=== PATIENT | female | born 1930 | race Asian ===

== ENCOUNTER 2018-06-12 18:43 | Inpatient (IN) | payer OTHER, MEDICARE ==
[~2018-06-12] VITALS: Ht 152.4 cm; Wt 63.7 kg
[~2018-06-12 18:43] MED LIST: AMLODIPINE BESYL5 M1 PO; BG MC; CARVEDILOL12.5 MG PO; COREG12.5 MG PO; COZ25 PO; ECO81 PO; GLU500 PO; ISO10 PO; LIPI10 PO; TORADOL10 MG PO
[2018-06-12 18:50] VITALS: Ht 152.4 cm; Wt 63.7 kg
[2018-06-12 19:47] LABS: BASOPHIL % 0.3 % (0-2); PLATELET COUNT 250 x10^3mcL (130-400)
[2018-06-12 19:49] LABS: RED CELL DISTRIBUTION WIDTH 15.3 % (11.5-14.5)
[2018-06-12 20:04] LABS: ALBUMIN 3.5 g/dL (3.4-5.0); ALKALINE PHOSPHATASE 78 U/L (46-116); ALT/SGPT 23 U/L (14-59); BILIRUBIN TOTAL 0.36 mg/dL (0.20-1.00); CALCIUM 9.7 mg/dL (8.5-10.1); CREATININE SERUM 1.2 mg/dL (0.6-1.0); GLUCOSE SERUM 129 mg/dL (74-106)
[2018-06-12 20:09] LABS: CHLORIDE SERUM 103 mmol/L (98-107)
[2018-06-12 20:23] LABS: AST/SGOT 22 U/L (15-37); CARBON DIOXIDE 29.2 mmol/L (21-32); POTASSIUM SERUM 4.9 mmol/L (3.5-5.1); SODIUM SERUM 137 mmol/L (136-145); TOTAL PROTEIN, SERUM 6.6 g/dL (6.4-8.2)
[2018-06-12 21:16] LABS: CHOLESTEROL/HDL RATIO 4.2; MAGNESIUM 1.9 mg/dL (1.8-2.4); PHOSPHOROUS 3.3 mg/dL (2.5-4.9)
[2018-06-12 21:21] LABS: T3 TOTAL 0.87 ng/mL
[2018-06-12] MEDS ORDERED: SINEMET 25-1001 TAB PO (21:22)
[2018-06-12 21:23] LABS: FREE T4 0.98 ng/dL (0.76-1.46); FREE THYROXINE INDEX 2.1 ug/dL (1.4-4.5); T4(THYROXINE) 6.3 ug/dL (4.7-13.3)
[2018-06-12] MEDS ORDERED: CLOZAPINE PO (21:23)
[2018-06-12] MEDS ORDERED: ALDACTONE25 MG PO (21:25)
[2018-06-12] MEDS ORDERED: ESCITALOPRA5 MG/5 ML PO (21:26)
[2018-06-12] MEDS ORDERED: TRADJENTA5 M1 PO (21:26)
[2018-06-12] MEDS ORDERED: VAL250 PO (21:28)
[2018-06-12 22:21] VITALS: BP 199/90
[2018-06-12 23:00] VITALS: BP 199/90
[2018-06-13] VITALS (8 sets, daily range): BP systolic 116–202; BP diastolic 55–97
[2018-06-13 01:04] LABS: RED BLOOD CELLS 4.77 M/mm3 (4.10-5.10)
[2018-06-13 01:12] LABS: TOTAL IRON BINDING CAPACITY 265 ug/dL (250-450)
[2018-06-13 01:19] LABS: IRON 30 ug/dL (50-170)
[2018-06-13 02:27] LABS: microscopic required? NO
[2018-06-13 02:35] LABS: UA SPECIFIC GRAVITY 1.015 (1.005-1.035); urine erythrocyte NEGATIVE (NEGATIVE)
[2018-06-13 02:48] LABS: AMPHETAMINE QUAL UR NONE DETECTED (See below)
[2018-06-13 06:31] LABS: BASOPHIL % 0.2 % (0-2); PLATELET COUNT 222 x10^3mcL (130-400)
[2018-06-13 06:38] LABS: RED CELL DISTRIBUTION WIDTH 15.4 % (11.5-14.5)
[2018-06-13 06:41] LABS: CALCIUM 9.4 mg/dL (8.5-10.1); CARBON DIOXIDE 28.9 mmol/L (21-32); CHLORIDE SERUM 106 mmol/L (98-107); CREATININE SERUM 1.1 mg/dL (0.6-1.0); GLUCOSE SERUM 114 mg/dL (74-106); SODIUM SERUM 139 mmol/L (136-145)
[2018-06-14 05:49] VITALS: BP 168/62
[2018-06-14 06:54] LABS: BASOPHIL % 0.1 % (0-2); PLATELET COUNT 228 x10^3mcL (130-400)
[2018-06-14 07:03] LABS: RED CELL DISTRIBUTION WIDTH 15.3 % (11.5-14.5); rbc morphology (normal/abnorm) ABNORMAL (NORMAL)
[2018-06-14 07:26] LABS: CALCIUM 9.4 mg/dL (8.5-10.1); CARBON DIOXIDE 26.9 mmol/L (21-32); CHLORIDE SERUM 104 mmol/L (98-107); CREATININE SERUM 1.2 mg/dL (0.6-1.0); GLUCOSE SERUM 89 mg/dL (74-106); PHOSPHOROUS 3.1 mg/dL (2.5-4.9); POTASSIUM SERUM 5.4 mmol/L (3.5-5.1); SODIUM SERUM 137 mmol/L (136-145)
[2018-06-14 09:28] VITALS: BP 188/73
[2018-06-14 13:48] VITALS: BP 186/81
[2018-06-14] MEDS ORDERED: DONEPEZIL PO (14:15)
[2018-06-14] MEDS ORDERED: KLO0.5 PO (14:17)
[2018-06-14 16:38] VITALS: BP 146/55
[2018-06-14 21:40] VITALS: BP 175/60
[2018-06-15 06:51] VITALS: BP 178/66
[2018-06-15 10:30] VITALS: BP 137/64
[2018-06-15 13:46] VITALS: BP 144/61
[2018-06-15 14:29] VITALS: BP 144/61
[2018-06-15] MEDS ORDERED: FER300 PO (14:32)
[2018-06-15] MEDS ORDERED: ADA30 PO (14:33)
[2018-06-15] MEDS ORDERED: COZ50 PO (14:33)
[2018-06-15] MEDS ORDERED: TOP50 PO (14:33)
[2018-06-15] MEDS ORDERED: VITAMIN C500 M6 PO (15:18)
[2018-06-15 15:48] LABS: CALCIUM 9.7 mg/dL (8.5-10.1); CARBON DIOXIDE 26.4 mmol/L (21-32); CHLORIDE SERUM 103 mmol/L (98-107); GLUCOSE SERUM 129 mg/dL (74-106); POTASSIUM SERUM 4.3 mmol/L (3.5-5.1); SODIUM SERUM 136 mmol/L (136-145)
[2018-06-15 15:56] LABS: BASOPHIL % 0.2 % (0-2); PLATELET COUNT 206 x10^3mcL (130-400)
[2018-06-15 15:58] LABS: RED CELL DISTRIBUTION WIDTH 14.7 % (11.5-14.5)
== END 2018-06-15 17:01 | disposition home health service (06) | DRG 199 ==
LOC: ED 18:43 → DU 20:14
PROVIDERS: Emergency Medicine; Family Medicine
DX: I16.0 Hypertensive urgency (principal); N17.0 Acute kidney failure with tubular necrosis; G20 Parkinson's disease; I70.1 Atherosclerosis of renal artery; E11.9 Type 2 diabetes mellitus without complications; D50.9 Iron deficiency anemia, unspecified; M94.0 Chondrocostal junction syndrome [Tietze]; E78.00 Pure hypercholesterolemia, unspecified; R09.02 Hypoxemia; E78.5 Hyperlipidemia, unspecified; I10 Essential (primary) hypertension; Z91.81 History of falling; Z99.3 Dependence on wheelchair; Z68.24 Body mass index [BMI] 24.0-24.9, adult; Z90.710 Acquired absence of both cervix and uterus; Z79.84 Long term (current) use of oral hypoglycemic drugs; Z79.82 Long term (current) use of aspirin; Z79.899 Other long term (current) drug therapy; Z83.3 Family history of diabetes mellitus
CPT/HCPCS: 36600; 83880; 84439; 85378; 97110-GP; 97116-GP; 97530-GP; J3490; J7030; J7620; Q0092; Q0162; Q9967

== ENCOUNTER 2018-08-24 18:23 | Inpatient (IN) | payer OTHER, MEDICARE ==
[~2018-08-24] VITALS: Ht 154.9 cm; Wt 55.8 kg
[~2018-08-24 18:23] MED LIST changes: +ADA30 PO; +ALDACTONE25 MG PO; +CLOZAPINE PO; +COZ50 PO; +DONEPEZIL PO; +ESCITALOPRA5 MG/5 ML PO; +FER300 PO; +KLO0.5 PO; +SINEMET 25-1001 TAB PO; +TOP50 PO; +TRADJENTA5 M1 PO; +VAL250 PO; +VITAMIN C500 M6 PO
[2018-08-24 19:12] VITALS: Ht 154.9 cm; Wt 55.8 kg
[2018-08-24 20:38] LABS: PLATELET COUNT 348 x10^3mcL (130-400)
[2018-08-24 20:40] LABS: RED CELL DISTRIBUTION WIDTH 16.2 % (11.5-14.5)
[2018-08-24 21:02] LABS: BAND NEUTROPHIL 3 % (0-10); BASOPHIL 0 % (0-2); MONOCYTE 5 % (0-7); SEGMENTED NEUTROPHILS 64 % (37-75)
[2018-08-24 21:03] LABS: ovalocyte/elliptocyte 1+; rbc morphology (normal/abnorm) ABNORMAL (NORMAL)
[2018-08-24 21:04] LABS: PLATELET MORPHOLOGY PLATELETS NORMAL; target cell (codocyte) 1+
[2018-08-24 21:25] LABS: CALCIUM 11.4 mg/dL (8.5-10.1); CHLORIDE SERUM 105 mmol/L (98-107); CREATININE SERUM 1.1 mg/dL (0.6-1.0); GLUCOSE SERUM 159 mg/dL (74-106); POTASSIUM SERUM 3.9 mmol/L (3.5-5.1); SODIUM SERUM 143 mmol/L (136-145)
[2018-08-24 21:29] LABS: ALBUMIN 3.6 g/dL (3.4-5.0); ALKALINE PHOSPHATASE 112 U/L (46-116); ALT/SGPT 25 U/L (14-59); AST/SGOT 17 U/L (15-37); BILIRUBIN TOTAL 0.9 mg/dL (0.20-1.00); TOTAL PROTEIN, SERUM 8.4 g/dL (6.4-8.2)
[2018-08-24 21:44] LABS: UA SPECIFIC GRAVITY 1.025 (1.005-1.035); microscopic required? YES; urine erythrocyte TRACE (NEGATIVE)
[2018-08-24 22:41] LABS: T3 TOTAL 1.18 ng/mL
[2018-08-24 22:43] VITALS: BP 185/74
[2018-08-24 22:45] LABS: FREE T4 1.61 ng/dL (0.76-1.46); FREE THYROXINE INDEX 4.5 ug/dL (1.4-4.5); T4(THYROXINE) 12.2 ug/dL (4.7-13.3)
[2018-08-24 23:11] LABS: MAGNESIUM 2.3 mg/dL (1.8-2.4); PHOSPHOROUS 2.9 mg/dL (2.5-4.9)
[2018-08-24 23:14] LABS: CHOLESTEROL/HDL RATIO 4.2
[2018-08-25] VITALS (8 sets, daily range): BP systolic 153–201; BP diastolic 76–100
[2018-08-25 06:09] LABS: PLATELET COUNT 299 x10^3mcL (130-400)
[2018-08-25 06:33] LABS: CALCIUM 9.4 mg/dL (8.5-10.1); CARBON DIOXIDE 22.5 mmol/L (21-32); CHLORIDE SERUM 110 mmol/L (98-107); CREATININE SERUM 0.8 mg/dL (0.6-1.0); GLUCOSE SERUM 152 mg/dL (74-106); MAGNESIUM 1.8 mg/dL (1.8-2.4); PHOSPHOROUS 2.5 mg/dL (2.5-4.9); POTASSIUM SERUM 3.3 mmol/L (3.5-5.1); SODIUM SERUM 142 mmol/L (136-145)
[2018-08-25 07:00] LABS: RED CELL DISTRIBUTION WIDTH 15.9 % (11.5-14.5)
[2018-08-25 09:25] LABS: ATYPICAL LYMPH 3 %; BAND NEUTROPHIL 1 % (0-10); BASOPHIL 1 % (0-2); MONOCYTE 10 % (0-7); SEGMENTED NEUTROPHILS 66 % (37-75)
[2018-08-25 09:27] LABS: rbc morphology (normal/abnorm) ABNORMAL (NORMAL); target cell (codocyte) 2+
[2018-08-25 09:28] LABS: PLATELET MORPHOLOGY PLATELETS NORMAL; schistocyte (helmet cell) 1+
[2018-08-25 09:33] LABS: IRON 44 ug/dL (50-170)
[2018-08-25 09:35] LABS: TOTAL IRON BINDING CAPACITY 166 ug/dL (250-450)
[2018-08-26] VITALS (7 sets, daily range): BP systolic 135–198; BP diastolic 73–97
[2018-08-26 06:03] LABS: PLATELET COUNT 279 x10^3mcL (130-400)
[2018-08-26 06:33] LABS: CALCIUM 9.7 mg/dL (8.5-10.1); CARBON DIOXIDE 23.7 mmol/L (21-32); CHLORIDE SERUM 111 mmol/L (98-107); CREATININE SERUM 0.8 mg/dL (0.6-1.0); GLUCOSE SERUM 174 mg/dL (74-106); MAGNESIUM 2.1 mg/dL (1.8-2.4); PHOSPHOROUS 1.8 mg/dL (2.5-4.9); SODIUM SERUM 143 mmol/L (136-145)
[2018-08-26 07:41] LABS: RED CELL DISTRIBUTION WIDTH 15.9 % (11.5-14.5)
[2018-08-26 14:06] LABS: BAND NEUTROPHIL 2 % (0-10); MONOCYTE 8 % (0-7); SEGMENTED NEUTROPHILS 71 % (37-75)
[2018-08-26 14:07] LABS: ATYPICAL LYMPH 2 %
[2018-08-26 14:09] LABS: rbc morphology (normal/abnorm) ABNORMAL (NORMAL)
[2018-08-26 14:10] LABS: ovalocyte/elliptocyte 2+; schistocyte (helmet cell) 1+
[2018-08-26 14:11] LABS: PLATELET MORPHOLOGY PLATELETS NORMAL
[2018-08-27] VITALS (7 sets, daily range): BP systolic 115–158; BP diastolic 52–97
[2018-08-27 06:02] LABS: CALCIUM 10.3 mg/dL (8.5-10.1); CARBON DIOXIDE 26.2 mmol/L (21-32); CHLORIDE SERUM 111 mmol/L (98-107); GLUCOSE SERUM 282 mg/dL (74-106); MAGNESIUM 2.3 mg/dL (1.8-2.4); PHOSPHOROUS 2.9 mg/dL (2.5-4.9); POTASSIUM SERUM 4.1 mmol/L (3.5-5.1); SODIUM SERUM 145 mmol/L (136-145)
[2018-08-27 06:03] LABS: PLATELET COUNT 256 x10^3mcL (130-400)
[2018-08-27 13:55] LABS: ATYPICAL LYMPH 3 %; BAND NEUTROPHIL 3 % (0-10); MONOCYTE 7 % (0-7); SEGMENTED NEUTROPHILS 72 % (37-75)
[2018-08-27 13:56] LABS: rbc morphology (normal/abnorm) ABNORMAL (NORMAL)
[2018-08-27 13:57] LABS: PLATELET MORPHOLOGY PLATELETS NORMAL; ovalocyte/elliptocyte 2+; schistocyte (helmet cell) 1+; target cell (codocyte) 2+
[2018-08-28 05:55] VITALS: BP 185/62
[2018-08-28 06:55] LABS: PLATELET COUNT 231 x10^3mcL (130-400)
[2018-08-28 07:13] LABS: CALCIUM 10.4 mg/dL (8.5-10.1); CARBON DIOXIDE 26.5 mmol/L (21-32); CHLORIDE SERUM 112 mmol/L (98-107); CREATININE SERUM 0.9 mg/dL (0.6-1.0); GLUCOSE SERUM 182 mg/dL (74-106); MAGNESIUM 2.4 mg/dL (1.8-2.4); PHOSPHOROUS 2.9 mg/dL (2.5-4.9); POTASSIUM SERUM 4.6 mmol/L (3.5-5.1); SODIUM SERUM 145 mmol/L (136-145)
[2018-08-28 08:59] LABS: RED CELL DISTRIBUTION WIDTH 17.2 % (11.5-14.5)
[2018-08-28 09:12] VITALS: BP 166/64
[2018-08-28 11:02] LABS: ATYPICAL LYMPH 7 %; BAND NEUTROPHIL 0 % (0-10); BASOPHIL 0 % (0-2); MONOCYTE 1 % (0-7); SEGMENTED NEUTROPHILS 77 % (37-75)
[2018-08-28 11:03] LABS: PLATELET MORPHOLOGY PLATELETS DECREASED; rbc morphology (normal/abnorm) ABNORMAL (NORMAL)
[2018-08-28] MEDS ORDERED: CEPHALEXIN500 MG GT (11:48)
[2018-08-28] MEDS ORDERED: GLUCERNA 1.2 C237 ML GT (11:52)
[2018-08-28 12:51] VITALS: BP 159/58
[2018-08-28 17:25] VITALS: BP 159/58
== END 2018-08-28 19:16 | disposition home health service (06) | DRG 52 ==
LOC: ED 18:23 → DU 21:43 → MU 21:43 → DU 08-25 08:18
PROVIDERS: Emergency Medicine; Internal Medicine; Internal Medicine Gastroenterology
PROC: 0DH63UZ Insertion of Feeding Device into Stomach, Percutaneous Approach (ICD-10-PCS; principal; 2018-08-25 13:30)
DX: G92 Toxic encephalopathy (principal); N17.0 Acute kidney failure with tubular necrosis; R62.7 Adult failure to thrive; F50.89 Other specified eating disorder; G20 Parkinson's disease; E86.0 Dehydration; E78.00 Pure hypercholesterolemia, unspecified; F32.9 Major depressive disorder, single episode, unspecified; I10 Essential (primary) hypertension; F03.90 Unspecified dementia, unspecified severity, without behavioral disturbance, psychotic disturbance, mood disturbance, and anxiety; E78.5 Hyperlipidemia, unspecified; G40.909 Epilepsy, unspecified, not intractable, without status epilepticus; E11.65 Type 2 diabetes mellitus with hyperglycemia; I16.0 Hypertensive urgency; N39.0 Urinary tract infection, site not specified; Z90.710 Acquired absence of both cervix and uterus; K29.80 Duodenitis without bleeding; Z79.82 Long term (current) use of aspirin; Z79.899 Other long term (current) drug therapy; Z83.3 Family history of diabetes mellitus
CPT/HCPCS: 43235; 82962; 83880; 84439; 90658; J0360; J0696; J1200; J1610; J2250; J2310; J3010; J3480; J3490; J7030; J7120; J7620; J8597; Q0092; Q9967

== ENCOUNTER 2018-11-11 17:19 | Inpatient (IN) | payer OTHER, MEDICARE ==
[~2018-11-11] VITALS: Ht 154.9 cm; Wt 56.0 kg
[~2018-11-11 17:19] MED LIST changes: +CEPHALEXIN500 MG GT; +GLUCERNA 1.2 C237 ML GT
[2018-11-11 17:23] VITALS: Ht 154.9 cm; Wt 56.0 kg
[2018-11-11 18:39] LABS: BASOPHIL % 0.3 % (0-2); PLATELET COUNT 294 x10^3mcL (130-400); RED CELL DISTRIBUTION WIDTH 17.8 % (11.5-14.5)
[2018-11-11 18:50] LABS: CALCIUM 10.7 mg/dL (8.5-10.1); CARBON DIOXIDE 26.9 mmol/L (21-32); CHLORIDE SERUM 102 mmol/L (98-107); CREATININE SERUM 1.2 mg/dL (0.6-1.0); GLUCOSE SERUM 238 mg/dL (74-106); POTASSIUM SERUM 4.6 mmol/L (3.5-5.1); SODIUM SERUM 140 mmol/L (136-145)
[2018-11-11 18:54] LABS: ALBUMIN 4.1 g/dL (3.4-5.0); ALKALINE PHOSPHATASE 110 U/L (46-116); ALT/SGPT 24 U/L (14-59); AST/SGOT 23 U/L (15-37); BILIRUBIN TOTAL 1.14 mg/dL (0.20-1.00)
[2018-11-11 18:55] LABS: TOTAL PROTEIN, SERUM 8.9 g/dL (6.4-8.2)
[2018-11-11 19:09] LABS: microscopic required? YES; urine erythrocyte NEGATIVE (NEGATIVE)
[2018-11-11] MEDS ORDERED: TOPROL XL25 MG (20:32)
[2018-11-11] MEDS ORDERED: LOSARTAN POTASS25 M1 (20:32)
[2018-11-11 21:47] LABS: MAGNESIUM 2.3 mg/dL (1.8-2.4); PHOSPHOROUS 3.1 mg/dL (2.5-4.9)
[2018-11-11 22:21] VITALS: BP 138/66
[2018-11-11 22:36] VITALS: BP 138/66; BP 192/94
[2018-11-12 04:14] LABS: CALCIUM 9.7 mg/dL (8.5-10.1); CARBON DIOXIDE 22.6 mmol/L (21-32); CHLORIDE SERUM 108 mmol/L (98-107); CREATININE SERUM 1.1 mg/dL (0.6-1.0); GLUCOSE SERUM 224 mg/dL (74-106); MAGNESIUM 1.9 mg/dL (1.8-2.4); PHOSPHOROUS 2.1 mg/dL (2.5-4.9); POTASSIUM SERUM 3.8 mmol/L (3.5-5.1); SODIUM SERUM 143 mmol/L (136-145)
[2018-11-12 04:17] LABS: RED CELL DISTRIBUTION WIDTH 16.8 % (11.5-14.5)
[2018-11-12 04:22] LABS: PLATELET COUNT 238 x10^3mcL (130-400)
[2018-11-12 04:23] LABS: BASOPHIL % 0.1 % (0-2)
[2018-11-12 06:22] VITALS: BP 164/67
[2018-11-12 06:28] VITALS: BP 164/64
[2018-11-12 10:34] VITALS: BP 173/76
[2018-11-12 14:33] VITALS: BP 149/65
[2018-11-12 17:21] VITALS: BP 140/63
[2018-11-12 21:03] VITALS: BP 111/63
[2018-11-13 05:41] VITALS: BP 190/97
[2018-11-13 06:57] VITALS: BP 136/74
[2018-11-13 07:10] LABS: PLATELET COUNT 210 x10^3mcL (130-400)
[2018-11-13 07:12] LABS: BASOPHIL % 0 % (0-2); RED CELL DISTRIBUTION WIDTH 16.8 % (11.5-14.5)
[2018-11-13 07:16] LABS: CALCIUM 9.4 mg/dL (8.5-10.1); CARBON DIOXIDE 22.6 mmol/L (21-32); CHLORIDE SERUM 109 mmol/L (98-107); CREATININE SERUM 0.8 mg/dL (0.6-1.0); GLUCOSE SERUM 176 mg/dL (74-106); SODIUM SERUM 144 mmol/L (136-145)
[2018-11-13 07:20] LABS: POTASSIUM SERUM 2.7 mmol/L (3.5-5.1)
[2018-11-13 09:11] VITALS: BP 149/67
[2018-11-13 13:04] VITALS: BP 157/78
[2018-11-13 17:05] VITALS: BP 172/82
[2018-11-13 20:00] VITALS: BP 165/80
[2018-11-14 05:12] VITALS: BP 167/82
[2018-11-14 09:08] VITALS: BP 170/70
[2018-11-14 12:40] VITALS: BP 123/60
[2018-11-14 16:43] VITALS: BP 119/65
[2018-11-14 20:48] VITALS: BP 147/79
[2018-11-15 06:11] VITALS: BP 157/74
[2018-11-15 06:48] LABS: BASOPHIL % 0.1 % (0-2); PLATELET COUNT 202 x10^3mcL (130-400)
[2018-11-15 07:10] LABS: CALCIUM 8.9 mg/dL (8.5-10.1); CARBON DIOXIDE 25.4 mmol/L (21-32); CHLORIDE SERUM 110 mmol/L (98-107); CREATININE SERUM 0.7 mg/dL (0.6-1.0); GLUCOSE SERUM 160 mg/dL (74-106); MAGNESIUM 1.5 mg/dL (1.8-2.4); SODIUM SERUM 143 mmol/L (136-145)
[2018-11-15 07:14] LABS: RED CELL DISTRIBUTION WIDTH 16.6 % (11.5-14.5)
[2018-11-15 07:24] LABS: POTASSIUM SERUM 2.6 mmol/L (3.5-5.1)
[2018-11-15 07:36] VITALS: BP 166/63
[2018-11-15 10:53] VITALS: BP 166/63
[2018-11-15 12:14] VITALS: BP 164/63
[2018-11-15 16:16] VITALS: BP 130/61
[2018-11-15 22:28] VITALS: BP 182/81
[2018-11-16 05:14] VITALS: BP 180/78
[2018-11-16 09:05] VITALS: BP 182/76
[2018-11-16 10:00] LABS: BASOPHIL % 0.1 % (0-2); PLATELET COUNT 212 x10^3mcL (130-400); RED CELL DISTRIBUTION WIDTH 16.7 % (11.5-14.5)
[2018-11-16 10:25] LABS: CALCIUM 8.6 mg/dL (8.5-10.1); CARBON DIOXIDE 28.6 mmol/L (21-32); CHLORIDE SERUM 109 mmol/L (98-107); CREATININE SERUM 0.7 mg/dL (0.6-1.0); GLUCOSE SERUM 162 mg/dL (74-106); SODIUM SERUM 144 mmol/L (136-145)
[2018-11-16 10:26] LABS: POTASSIUM SERUM 2.9 mmol/L (3.5-5.1)
[2018-11-16 13:17] VITALS: BP 192/70
[2018-11-16 14:04] VITALS: BP 143/63
[2018-11-16 17:14] VITALS: BP 144/49
[2018-11-16 20:46] VITALS: BP 166/84
[2018-11-17 05:34] VITALS: BP 206/90
[2018-11-17 06:10] VITALS: BP 178/78
[2018-11-17 07:01] LABS: CALCIUM 8.5 mg/dL (8.5-10.1); CARBON DIOXIDE 28.4 mmol/L (21-32); CHLORIDE SERUM 107 mmol/L (98-107); CREATININE SERUM 0.7 mg/dL (0.6-1.0); GLUCOSE SERUM 160 mg/dL (74-106); POTASSIUM SERUM 3.6 mmol/L (3.5-5.1); SODIUM SERUM 142 mmol/L (136-145)
[2018-11-17 08:16] LABS: BASOPHIL % 0.1 % (0-2); PLATELET COUNT 216 x10^3mcL (130-400)
[2018-11-17 08:19] LABS: RED CELL DISTRIBUTION WIDTH 16.7 % (11.5-14.5)
[2018-11-17 08:20] LABS: rbc morphology (normal/abnorm) ABNORMAL (NORMAL)
[2018-11-17 10:02] VITALS: BP 181/84
[2018-11-17 16:31] VITALS: BP 113/46
[2018-11-17 21:14] VITALS: BP 141/69
[2018-11-18 05:26] VITALS: BP 146/59
[2018-11-18 07:43] VITALS: BP 189/83
[2018-11-18 09:30] LABS: CALCIUM 8.9 mg/dL (8.5-10.1); CARBON DIOXIDE 30.5 mmol/L (21-32); CHLORIDE SERUM 105 mmol/L (98-107); CREATININE SERUM 0.6 mg/dL (0.6-1.0); GLUCOSE SERUM 100 mg/dL (74-106); POTASSIUM SERUM 3.5 mmol/L (3.5-5.1); SODIUM SERUM 142 mmol/L (136-145)
[2018-11-18 12:06] VITALS: BP 180/76
[2018-11-18 16:45] VITALS: BP 118/59
[2018-11-18 17:49] VITALS: BP 118/59
[2018-11-18 20:50] VITALS: BP 177/81
[2018-11-19] VITALS (7 sets, daily range): BP systolic 155–206; BP diastolic 67–74
[2018-11-19 06:18] LABS: CALCIUM 8.9 mg/dL (8.5-10.1); CARBON DIOXIDE 27.7 mmol/L (21-32); CHLORIDE SERUM 103 mmol/L (98-107); CREATININE SERUM 0.7 mg/dL (0.6-1.0); GLUCOSE SERUM 169 mg/dL (74-106); POTASSIUM SERUM 3.7 mmol/L (3.5-5.1); SODIUM SERUM 138 mmol/L (136-145)
[2018-11-19 08:54] LABS: BASOPHIL % 0.4 % (0-2); PLATELET COUNT 247 x10^3mcL (130-400)
[2018-11-19 08:55] LABS: RED CELL DISTRIBUTION WIDTH 16.6 % (11.5-14.5)
[2018-11-20 06:52] VITALS: BP 173/61
[2018-11-20 07:21] LABS: PLATELET COUNT 302 x10^3mcL (130-400)
[2018-11-20 07:29] LABS: CALCIUM 9.3 mg/dL (8.5-10.1); CARBON DIOXIDE 29.9 mmol/L (21-32); CHLORIDE SERUM 102 mmol/L (98-107); CREATININE SERUM 0.6 mg/dL (0.6-1.0); GLUCOSE SERUM 170 mg/dL (74-106); POTASSIUM SERUM 3.5 mmol/L (3.5-5.1); SODIUM SERUM 137 mmol/L (136-145)
[2018-11-20 08:46] VITALS: BP 189/74
[2018-11-20 11:13] LABS: BAND NEUTROPHIL 7 % (0-10); BASOPHIL 0 % (0-2); METAMYELOCTE 2 % (0-2); MONOCYTE 9 % (0-7); MYELOCYTE 2 % (0-2); SEGMENTED NEUTROPHILS 54 % (37-75)
[2018-11-20 11:14] LABS: rbc morphology (normal/abnorm) ABNORMAL (NORMAL)
[2018-11-20 11:15] LABS: ovalocyte/elliptocyte 1+; schistocyte (helmet cell) 1+; target cell (codocyte) 1+
[2018-11-20 11:20] LABS: PLATELET MORPHOLOGY PLATELETS NORMAL
[2018-11-20 12:47] VITALS: BP 188/73
[2018-11-20 14:47] VITALS: BP 187/87
[2018-11-20 17:03] VITALS: BP 136/82
[2018-11-20 21:04] VITALS: BP 173/70
[2018-11-21 05:33] VITALS: BP 186/76
[2018-11-21 06:44] LABS: CALCIUM 9.4 mg/dL (8.5-10.1); CARBON DIOXIDE 29.9 mmol/L (21-32); CHLORIDE SERUM 101 mmol/L (98-107); CREATININE SERUM 0.7 mg/dL (0.6-1.0); GLUCOSE SERUM 162 mg/dL (74-106); MAGNESIUM 1.7 mg/dL (1.8-2.4); POTASSIUM SERUM 3.8 mmol/L (3.5-5.1); SODIUM SERUM 134 mmol/L (136-145)
[2018-11-21 08:55] VITALS: BP 176/71
[2018-11-21 10:47] LABS: PLATELET COUNT 290 x10^3mcL (130-400); RED CELL DISTRIBUTION WIDTH 17.1 % (11.5-14.5)
[2018-11-21 13:37] VITALS: BP 150/55
[2018-11-21 16:46] VITALS: BP 126/54
[2018-11-21 21:41] VITALS: BP 206/80
[2018-11-22 00:46] VITALS: BP 187/68
[2018-11-22 06:35] VITALS: BP 175/77
[2018-11-22 06:44] LABS: CALCIUM 9.3 mg/dL (8.5-10.1); CHLORIDE SERUM 103 mmol/L (98-107); CREATININE SERUM 0.6 mg/dL (0.6-1.0); GLUCOSE SERUM 159 mg/dL (74-106); POTASSIUM SERUM 3.7 mmol/L (3.5-5.1); SODIUM SERUM 135 mmol/L (136-145)
[2018-11-22 08:12] LABS: BASOPHIL % 0.1 % (0-2); PLATELET COUNT 340 x10^3mcL (130-400); RED CELL DISTRIBUTION WIDTH 17.2 % (11.5-14.5)
[2018-11-22 10:12] VITALS: BP 206/98
[2018-11-22 12:26] VITALS: BP 139/52
[2018-11-22 17:26] VITALS: BP 170/73
[2018-11-22 19:50] VITALS: BP 155/59
[2018-11-23] VITALS (9 sets, daily range): BP systolic 130–197; BP diastolic 51–78
[2018-11-23 07:47] LABS: PLATELET COUNT 353 x10^3mcL (130-400)
[2018-11-23 07:57] LABS: CALCIUM 9.7 mg/dL (8.5-10.1); CARBON DIOXIDE 30.9 mmol/L (21-32); CHLORIDE SERUM 99 mmol/L (98-107); CREATININE SERUM 0.6 mg/dL (0.6-1.0); GLUCOSE SERUM 175 mg/dL (74-106); POTASSIUM SERUM 3.7 mmol/L (3.5-5.1); SODIUM SERUM 136 mmol/L (136-145)
[2018-11-23 08:16] LABS: RED CELL DISTRIBUTION WIDTH 17.5 % (11.5-14.5)
[2018-11-23] MEDS ORDERED: CEFEPIME1 GM/50 ML IV (11:26)
[2018-11-23] MEDS ORDERED: FLA500 GT (11:26)
[2018-11-23] MEDS ORDERED: CATAPRES0.1 MG GT (11:27)
[2018-11-23] MEDS ORDERED: METOPROLOL SUCC50 M2 GT (11:27)
[2018-11-23] MEDS ORDERED: NOR10 PO (11:27)
[2018-11-23 11:44] LABS: BAND NEUTROPHIL 9 % (0-10); BASOPHIL 0 % (0-2); METAMYELOCTE 1 % (0-2); MONOCYTE 10 % (0-7); SEGMENTED NEUTROPHILS 62 % (37-75)
[2018-11-23 11:46] LABS: PLATELET MORPHOLOGY PLATELETS NORMAL; ovalocyte/elliptocyte 1+; rbc morphology (normal/abnorm) ABNORMAL (NORMAL); target cell (codocyte) 1+; tear drop cell (dacryocyte) 1+
[2018-11-24] VITALS (8 sets, daily range): BP systolic 147–190; BP diastolic 60–83
[2018-11-25 05:59] VITALS: BP 172/75
[2018-11-25 08:58] VITALS: BP 175/72
[2018-11-25 12:20] VITALS: BP 155/66
[2018-11-25 17:36] VITALS: BP 167/67
[2018-11-25 18:57] VITALS: BP 135/58
[2018-11-25 21:05] VITALS: BP 160/70
[2018-11-26 05:59] VITALS: BP 160/66
[2018-11-26 07:19] LABS: CALCIUM 9.8 mg/dL (8.5-10.1); CARBON DIOXIDE 30.5 mmol/L (21-32); CHLORIDE SERUM 100 mmol/L (98-107); CREATININE SERUM 0.7 mg/dL (0.6-1.0); GLUCOSE SERUM 177 mg/dL (74-106); SODIUM SERUM 136 mmol/L (136-145)
[2018-11-26 07:31] LABS: PLATELET COUNT 433 x10^3mcL (130-400)
[2018-11-26 09:21] VITALS: BP 177/71
[2018-11-26 10:30] VITALS: BP 153/60
[2018-11-26 12:02] LABS: ATYPICAL LYMPH 11 %; BAND NEUTROPHIL 1 % (0-10); SEGMENTED NEUTROPHILS 33 % (37-75)
[2018-11-26 12:03] LABS: BASOPHIL 0 % (0-2); MONOCYTE 33 % (0-7)
[2018-11-26 12:04] LABS: PLATELET MORPHOLOGY N; rbc morphology (normal/abnorm) ABNORMAL (NORMAL); target cell (codocyte) 1+
[2018-11-26 12:58] VITALS: BP 145/62
[2018-11-26 17:48] VITALS: BP 154/64
[2018-11-26 21:28] VITALS: BP 124/63
[2018-11-27 05:21] VITALS: BP 164/68
[2018-11-27 06:53] LABS: CALCIUM 10.3 mg/dL (8.5-10.1); CARBON DIOXIDE 33.9 mmol/L (21-32); CHLORIDE SERUM 100 mmol/L (98-107); CREATININE SERUM 0.8 mg/dL (0.6-1.0); GLUCOSE SERUM 231 mg/dL (74-106); POTASSIUM SERUM 3.8 mmol/L (3.5-5.1); SODIUM SERUM 139 mmol/L (136-145)
[2018-11-27 06:58] LABS: RED CELL DISTRIBUTION WIDTH 18.4 % (11.5-14.5)
[2018-11-27 09:09] VITALS: BP 159/64
[2018-11-27 12:27] LABS: BAND NEUTROPHIL 6 % (0-10); BASOPHIL 0 % (0-2); MONOCYTE 9 % (0-7); PLATELET MORPHOLOGY PLATELETS INCREASED; SEGMENTED NEUTROPHILS 76 % (37-75)
[2018-11-27 12:28] LABS: rbc morphology (normal/abnorm) ABNORMAL (NORMAL)
[2018-11-27 13:02] VITALS: BP 117/97
[2018-11-27 14:10] LABS: PLATELET COUNT 505 x10^3mcL (130-400)
[2018-11-27 16:52] VITALS: BP 165/67
[2018-11-27 21:17] VITALS: BP 159/72
[2018-11-28 06:13] VITALS: BP 178/82
[2018-11-28 08:01] LABS: CALCIUM 10.7 mg/dL (8.5-10.1); CARBON DIOXIDE 30.9 mmol/L (21-32); CHLORIDE SERUM 101 mmol/L (98-107); CREATININE SERUM 0.8 mg/dL (0.6-1.0); GLUCOSE SERUM 268 mg/dL (74-106); POTASSIUM SERUM 3.9 mmol/L (3.5-5.1); SODIUM SERUM 140 mmol/L (136-145)
[2018-11-28 08:26] LABS: PLATELET COUNT 558 x10^3mcL (130-400); RED CELL DISTRIBUTION WIDTH 18.7 % (11.5-14.5)
[2018-11-28 08:59] VITALS: BP 191/74
[2018-11-28 10:49] LABS: ATYPICAL LYMPH 2 %; BAND NEUTROPHIL 8 % (0-10); BASOPHIL 0 % (0-2); MONOCYTE 2 % (0-7); SEGMENTED NEUTROPHILS 83 % (37-75)
[2018-11-28 10:50] LABS: PLATELET MORPHOLOGY PLATELETS INCREASED; rbc morphology (normal/abnorm) ABNORMAL (NORMAL)
[2018-11-28 13:06] VITALS: BP 129/72
== END 2018-11-28 19:39 | disposition home health service (06) | DRG 720 ==
LOC: ED 17:19 → DU 19:11
PROVIDERS: Emergency Medicine; General Practice; Internal Medicine; Pediatrics Pediatric Cardiology; ADMIT Family Medicine
DX: A41.9 Sepsis, unspecified organism (principal); J69.0 Pneumonitis due to inhalation of food and vomit; J96.21 Acute and chronic respiratory failure with hypoxia; N17.0 Acute kidney failure with tubular necrosis; R65.21 Severe sepsis with septic shock; G93.41 Metabolic encephalopathy; R13.10 Dysphagia, unspecified; E11.65 Type 2 diabetes mellitus with hyperglycemia; G30.9 Alzheimer's disease, unspecified; G20 Parkinson's disease; I16.0 Hypertensive urgency; G40.909 Epilepsy, unspecified, not intractable, without status epilepticus; E86.0 Dehydration; D50.9 Iron deficiency anemia, unspecified; E83.42 Hypomagnesemia; E87.6 Hypokalemia; R19.7 Diarrhea, unspecified; F32.9 Major depressive disorder, single episode, unspecified; F02.81 Dementia in other diseases classified elsewhere, unspecified severity, with behavioral disturbance; Z82.49 Family history of ischemic heart disease and other diseases of the circulatory system; Z79.899 Other long term (current) drug therapy; Z74.01 Bed confinement status; Z93.1 Gastrostomy status; Z68.25 Body mass index [BMI] 25.0-25.9, adult; Z90.710 Acquired absence of both cervix and uterus; Z83.3 Family history of diabetes mellitus
CPT/HCPCS: 36600; 82962; 83880; 87046; 87046-59; 87804; 92526-GN; 92610-GN; J0360; J0692; J0696; J1815; J1940; J1956; J2543; J2920; J3475; J3480; J3490; J7030; J7620; J7644; Q0092

== ENCOUNTER 2019-05-13 10:46 | Emergency (ER) | payer MEDICARE, OTHER ==
[~2019-05-13] VITALS: Ht 149.9 cm; Wt 47.6 kg
[~2019-05-13 10:46] MED LIST changes: +CATAPRES0.1 MG GT; +CEFEPIME1 GM/50 ML IV; +FLA500 GT; +LOSARTAN POTASS25 M1; +METOPROLOL SUCC50 M2 GT; +NOR10 PO; +TOPROL XL25 MG
[2019-05-13 10:57] VITALS: Ht 149.9 cm; Wt 47.6 kg
[2019-05-13 13:05] VITALS: BP 137/68
== END 2019-05-13 13:05 | disposition home or self-care (01) ==
LOC: ED 10:46
DX: K94.23 Gastrostomy malfunction (principal); I10 Essential (primary) hypertension; E11.9 Type 2 diabetes mellitus without complications; F03.90 Unspecified dementia, unspecified severity, without behavioral disturbance, psychotic disturbance, mood disturbance, and anxiety; E78.00 Pure hypercholesterolemia, unspecified; F32.9 Major depressive disorder, single episode, unspecified; Z98.890 Other specified postprocedural states; Z90.710 Acquired absence of both cervix and uterus
CPT/HCPCS: Q0092; Q9966

== ENCOUNTER 2019-08-21 08:24 | Emergency (ER) | payer MEDICARE, OTHER ==
[~2019-08-21] VITALS: Ht 154.9 cm; Wt 56.7 kg
[2019-08-21 08:33] VITALS: Ht 154.9 cm; Wt 56.7 kg
[2019-08-21 12:35] VITALS: BP 171/83
== END 2019-08-21 12:38 | disposition home or self-care (01) ==
LOC: ED 08:24
DX: Z46.59 Encounter for fitting and adjustment of other gastrointestinal appliance and device (principal); I10 Essential (primary) hypertension; E11.9 Type 2 diabetes mellitus without complications; E78.00 Pure hypercholesterolemia, unspecified; Z90.710 Acquired absence of both cervix and uterus
CPT/HCPCS: Q9967

== ENCOUNTER 2019-09-07 20:46 | Inpatient (IN) | payer OTHER, MEDICARE ==
[~2019-09-07] VITALS: Ht 154.9 cm; Wt 53.3 kg
[2019-09-07 22:26] LABS: CALCIUM 10.1 mg/dL (8.5-10.1); CARBON DIOXIDE 27.3 mmol/L (21-32); CHLORIDE SERUM 102 mmol/L (98-107); CREATININE SERUM 0.9 mg/dL (0.6-1.0); GLUCOSE SERUM 190 mg/dL (74-106); POTASSIUM SERUM 4.5 mmol/L (3.5-5.1); SODIUM SERUM 137 mmol/L (136-145)
[2019-09-07 22:31] LABS: ALBUMIN 3.7 g/dL (3.4-5.0); ALKALINE PHOSPHATASE 132 U/L (46-116); ALT/SGPT 20 U/L (14-59); AMYLASE 29 U/L (25-115); AST/SGOT 18 U/L (15-37); BILIRUBIN TOTAL 0.7 mg/dL (0.20-1.00); LIPASE 71 IU/L (73-393); TOTAL PROTEIN, SERUM 7.7 g/dL (6.4-8.2)
[2019-09-07 22:37] LABS: BASOPHIL % 0.6 % (0-2); PLATELET COUNT 292 x10^3mcL (130-400); RED CELL DISTRIBUTION WIDTH 15.6 % (11.5-14.5)
[2019-09-08] VITALS (9 sets, daily range): BP systolic 107–185; BP diastolic 55–84
[2019-09-08 00:49] LABS: microscopic required? YES; urine erythrocyte NEGATIVE (NEGATIVE)
--- NOTE | 2019-09-08 01:51 | NUR ---
GTUBE FLUSED WITH 50 ML H20, WHEN PULLING BACK WATER HAD FRESH BLOOD IN IT. MD POND, DR CACERES TO BEDSIDE FLUSH REPEATED WITH SAME RESULTS
--- NOTE | 2019-09-08 03:15 | NUR ---
RECEIVED PT VIA GURNEY ACCOMPANIED BY NURSES. PT IS AWAKE AND ALERT. NONVERBAL D/T HX OF DEMENTIA, ALZHEIMERS. DAUGHTER AT BEDSIDE HISTORIAN. TELE #[address] W DEPRESSED [address] WAVES. PULSES ARE PALPABLE. NO EDEMA PRESENT. BREATHING IS EVEN AND UNLABORED ON RA. LUNG SOUNDS ARE CTA. NO SIGNS OF RESP. DISTRESS. ABD IS ROUND AND SLIGHTLY DISTENDED. LAST BM WAS 09/05. GTUBE ON L ABD. DAUGHTER C/O BLOOD ASPIRATED FROM GTUBE. DRSG CDI. INCONTINENT. GENERALIZED WEAKNESS. BASELINE IS WHEELCHAIR BOUND/BED BOUND. SKIN INTACT. NO REDNESS NOTED. NO PAIN NOTED. LFA IV DRY, INTACT, AND PATENT. NO SIGNS OF ERYTHEMA. VS ARE FOLLOWED: BP 170/84 (98), HR 99, TEMP 98.4, RR 18, SAO2 98%. WILL REPORT BP TO DR. YEPEZ IN LOWEST POSITION. CALL LIGHT WITHIN REACH. WILL CONTINUE TO MONITOR.
--- NOTE | 2019-09-08 03:56 | NUR ---
DR. AMAYA MADE AWARE OF PTS BP. AWAITING ORDERS.
--- NOTE | 2019-09-08 04:31 | NUR ---
ADMINISTERED HYDRALAZINE 0.5MG PRN PER JAN OD. WILL RECHECK BP FOR EFFECTIVENESS.
[2019-09-08 06:57] LABS: CALCIUM 9.7 mg/dL (8.5-10.1); CARBON DIOXIDE 23.8 mmol/L (21-32); CHLORIDE SERUM 105 mmol/L (98-107); CREATININE SERUM 0.7 mg/dL (0.6-1.0); GLUCOSE SERUM 154 mg/dL (74-106); POTASSIUM SERUM 3.9 mmol/L (3.5-5.1); SODIUM SERUM 139 mmol/L (136-145)
[2019-09-08 06:59] LABS: BASOPHIL % 0.4 % (0-2); PLATELET COUNT 298 x10^3mcL (130-400)
--- NOTE | 2019-09-08 07:37 | NUR ---
ENDORSED CARE TO DAY SHIFT NURSE, KUSH POTTER.
--- NOTE | 2019-09-08 10:00 | NUR ---
DOCTOR CYR AND MEDICAL TEAM AT BEDSIDE FOR AM ROUND. PLAN OF CARE DISCUSSED. NO SIGNS OF LEARNING AT THIS TIME DUE TO PATIENT MENTAL STATUS. FAMILY IS NOT AT BEDSIDE AT THIS TIME.
--- NOTE | 2019-09-08 10:46 | NUR ---
ASSESSED BY DOCTOR PINEDA AT BEDSIDE. PER DOCTOR PINEDA OK TO USE G TUBE FOR MEDICATION AND FEEDING.
--- NOTE | 2019-09-08 13:09 | NUR ---
NOTED XRAY GTUBE PLACEMENT SHOW G TUBE IS IN THE BOWEL.
--- NOTE | 2019-09-08 13:23 | NUR ---
DR PINEDA MADE AWARE OF XR ABD RESULTS
--- NOTE | 2019-09-08 13:55 | NUR ---
PATIENT'S BROTHER AT BEDSIDE MADE AWARE OF PATIENT BEING DISCHARGED BACK TO [facility]. DISCHARGE INSTRUCTION GIVEN TO PATIENT'S BROTHER WHO IS AWAKE, ALERT, ORIENTED X4. S/L TO RT ARM WITH CATHETER INTACT, NO ERYTHEMA OR SWELLING TO SITE, DRSG APPLIED. NEW DIAPER INPLACE. ALL BELONGINGS CHECKED AND KEPT WITH PATIENT. BROUGHT VIA WHEELCHAIR ASSISTED BY SYSTEMS LEAD TO [facility]. PATIENT'S CARE TAKERS FROM [facility] WAITING AT THE [facility].
--- NOTE | 2019-09-08 14:45 | NUR ---
CONSENT FOR ESOPHAGOGASTRODUODENOSCOPY AND MODERATE ANESTHESIA SIGNED BY PATIENT'S DAUGHTER AT BEDSIDE WHO IS AWAKE, ALERT, ORIENTED X4. UPDATED PLAN OF CARE, PATIENT'S DAUGHTER VERBALIZED UNDERSTANDING.
--- NOTE | 2019-09-08 18:32 | NUR ---
NO ANY DISTRESS THROUGHOUT SHIFT. KEPT NPO. FAMILY MADE AWARE OF EGD TOMORROW. ON AIRLOSS MATTRESS. TURNED AND REPOSITIONED Q 2HRS. OPTIFOAM TO COCCYX INPLACE TO PREVENT SKIN BREAKDOWN. IVF D5NS AT 20ML/HR INFUSING WELL TO LFA IV SITE. FAMILY AT BEDSIDE MOST OF THE TIME.
--- NOTE | 2019-09-08 19:35 | NUR ---
RECEIVED REPORT FROM DAY SHIFT NURSE, KUSH POTTER. PT IS AWAKE AND ALERT. NONVERBAL BASELINE D/T HX. SON AT BEDSIDE. TELE #15 READING SR-ST WITH DEPRESSED ST WAVES. PULSES ARE PALPABLE. NO EDEMA NOTED. BREATHING IS EVEN AND UNLABORED ON RA. LUNG SOUNDS CTA. NO SIGNS OF RESP DISTRESS. ABD IS ROUND AND SLIGHTLY DISTENDED. BS HYPOACTIVE IN ALL 4Q. INCONTINENT. GENERALIZED WEAKNESS. AIR MATTRESS APPLIED. WHEELCHAIR BOUND/BEDBOUND BASELINE. GTUBE WITH OPTIFOAM CDI. IV ON LFA DRY, INTACT, AND PATENT. NO SIGNS OF ERYTHEMA. BED IN LOWEST POSITION. CALL LIGHT WITHIN REACH. WILL CONTINUE TO MONITOR.
--- NOTE | 2019-09-08 20:35 | NUR ---
MADE AWARE OF BP 169/82. WILL ADMINISTER HYDRALAZINE 0.5MG PRN PER JAN ORDER. WILL RECHECK EFFECTIVENESS.
--- NOTE | 2019-09-08 21:14 | NUR ---
IV TO LFA D/C'D D/T SWELLING. ARM ELEVATED ON PILLOW. WILL CONTINUE TO MONITOR SWELLING. NEW IV INSERTED ON RFA 22G. IV SITE DRY, INTACT, AND PATENT. DAUGHTER AT BEDSIDE. BED IN LOWEST POSITION. CALL LIGHT WITHIN REACH. WILL CONTINUE TO MONITOR.
--- NOTE | 2019-09-08 22:48 | NUR ---
RECHECKED PT BP, 107/55. NO SIGNS OF ACUTE DISTRESS. WILL CONTINUE TO MONITOR.
--- NOTE | 2019-09-09 01:18 | NUR ---
PT IS RESTING COMFORTABLY WITH EYES CLOSED, BUT EASILY AROUSABLE. BREATHING IS EVEN AND UNLABORED ON RA. NO SIGNS OF RESP. DISTRESS. DAUGHTER AT BEDSIDE, ASLEEP. BED IN LOWEST POSITION. CALL LIGHT WITHIN REACH. WILL CONTINUE TO MONITOR.
--- NOTE | 2019-09-09 03:59 | NUR ---
PT IS AWAKE IN BED, RESTING COMFORTABLY. DAUGHTER AT BEDSIDE ASLEEP. BREATHING IS EVEN AND UNLABORED ON RA. NO SIGNS OF RESP DISTRESS. BED IN LOWEST POSITION. CALL LIGHT WITHIN REACH. WILL CONTINUE TO MONITOR.
--- NOTE | 2019-09-09 04:36 | NUR ---
PT SLEPT IN LONG INTERVALS THROUGHOUT THE SHIFT AND COMPLIED WITH NURSING CARE WITH NO ACUTE EVENTS OCCURRING OVERNIGHT. COMFORT AND SAFETY MEASURES MAINTAINED. ALL NEEDS ASSESSED AND ATTENDED TO. WILL HAVE PROCEDURE DONE IN AM. CONSENT SIGN. PREOP CHECKLIST COMPLETE. WILL CONTINUE TO MONITOR AND ENDORSE CARE TO DAY SHIFT NURSE.
[2019-09-09 04:50] VITALS: BP 132/68
[2019-09-09 06:32] LABS: CALCIUM 9.9 mg/dL (8.5-10.1); CARBON DIOXIDE 25.3 mmol/L (21-32); CHLORIDE SERUM 108 mmol/L (98-107); CREATININE SERUM 0.8 mg/dL (0.6-1.0); GLUCOSE SERUM 166 mg/dL (74-106); MAGNESIUM 1.8 mg/dL (1.8-2.4); PHOSPHOROUS 2.8 mg/dL (2.5-4.9); POTASSIUM SERUM 3.7 mmol/L (3.5-5.1); SODIUM SERUM 142 mmol/L (136-145)
[2019-09-09 06:49] LABS: BASOPHIL % 0.7 % (0-2); PLATELET COUNT 290 x10^3mcL (130-400)
[2019-09-09 07:06] LABS: RED CELL DISTRIBUTION WIDTH 14.9 % (11.5-14.5)
--- NOTE | 2019-09-09 07:27 | NUR ---
ENDORSED CARE TO DAY SHIFT NURSE, NORBERT POTTER.
--- NOTE | 2019-09-09 07:43 | NUR ---
REPORT GIVEN TO ALEXYS IN GI LAB.
[2019-09-09 07:45] VITALS: BP 154/66
--- NOTE | 2019-09-09 08:00 | NUR ---
EYE CONTACT. MOSTLY NONVERBAL. DTR AT BEDSIDE. NPO FOR EGD THIS AM.BREATHING FREELY ON RA. DOES NOT APPEAR TO BE IN ANY PAIN. D5 NS INFUSING 20 CC TO RT FA. TOTAL CARE. CALL LIGHT WITHIN REACH.
[2019-09-09 08:41] VITALS: Ht 154.9 cm; Wt 53.3 kg
--- NOTE | 2019-09-09 09:26 | NUR ---
Initial Nutrition Assessment- Dx: aspirated blood from g-tube, upper GIB. PMHx: HTN, DM, Parkinsons dementia, PEG tube, pancreatic tumor PSHx: g-tube placement Labs: (09/09/19) Na 142, K 3.7, Glu 166 H, BUN 19 H, Cr 0.8, H/H 10.8/37, A1c 7.4. Meds: catapres, citrate of magnesia, Colace, cozaar, depakene, D5% NaCl 0.9%, ferrous sulfate, Humulin R, hydralazine, Lasix, Lexapro, Norvasc, protonix Diet: NPO Current Nutrition Support: None at this time Ht: 154.94 cm / 61 inches / 5'1" Wt: 53.269 kg / 117 pounds BMI: 22.1 kg/m2, underweight for age IBW: 105 pounds / 48 kg %IBW: 111% UBW: Unable to obtain Age: 89 Food Allergies: No Known Food Allergies Skin: WNL, Shaka 15 Edema: none GI: Last BM 09/05/19, abd is round and slightly distended, BS active in all 4Q. Pt admitted with dx: possible GI hemorrhage upper vs lower, pancreatic mass, possible cancer, DM (not in control), HTN (controlled), Parkinson's disease, seizure disorder, DVT prophylaxis. Per H&P, Pt was brought to ED by daughter with c/o bleeding from g-tube. A mild proturbance of the intestine is noted. PEG tube was placed by Dr. Faith on 08/25/2018. Hospice care was discussed with daughter, daughter refused. RDN visited with Pt, Pt nonverbal. She appeared to be calm, in no apparent distress or discomfort. She appears to be adequately nourished. Consult - Tube Feeding Problem with: N: no V: no D: no C: no Problems with: Chewing: yes Swallowing: yes Current appetite: N/A Recent wt changes: None Vitamin/Supplement: None Special Diet at Home: TF Physical activity: generalized weakness, bedbound/wheelchair-bound at baseline. Education: N/A Estimated Nutritional Needs Based on actual body weight of 53 kg. Energy: 6753-7167 kcal/d (30-35 kcal/kg for older adult maintenance) Protein: 53-64 gm/d (1-1.2 gm/kg for older adult maintenance) Fluid: 3670-7175 mL/d (1 mL/kcal) or per MD. Nutrition Diagnosis 1. Inadequate protein/energy intakes related to aspirated blood from g-tube, upper GIB as evidenced by Pt not receiving TF at this time, Pt meeting < 80% estimated needs. Intervention/RDN Recommendation(s): 1. Continue NPO as medically appropriate. 2. If/when medically appropriate per MD, consider initiating tube feedings of Glucerna 1.2 to run at 20 mL/hr, increasing by 10 mL Q4H as tolerated, until goal rate of 50 mL/hr is reached. At goal rate of 50 mL/hr, TF Glucerna 1.2 will provide 1200 mL total volume, 1440 kcal, and 72 gm protein to meet 90% estimated kcal needs and > 100% estimated protein needs. Monitor/Evaluate Goal: Intake via nutrition support to meet at least 80% of estimated needs with acceptable tolerance within 2-3 days. Monitor: nutrition support tolerance, Labs, GI function, Skin integrity, Weights. F/U in 2-3 days as high risk (09/11-)
--- NOTE | 2019-09-09 10:41 | NUR ---
PT LEFT FLOOR FOR EGD. IV HL'D. TELE RETURNED TO TELE STATION.
[2019-09-09 11:45] VITALS: BP 131/67
--- NOTE | 2019-09-09 11:46 | NUR ---
BACK FROM GI LAB. DUADENAL ULCER. KLO TEST PENDING. DR. PINEDA SPOKE WOTH PTS DTR COLUMBA. PT WILL HAVE COLONOSCOPY TOMORROW. TELE # [address]
--- NOTE | 2019-09-09 13:37 | NUR ---
BOWEL PREP STARTED. T.C. TO KITCHEN RE: BOLUS FEEDINGS ORDERED. ONLYHAVE GLUCENA IN CONTINUOUS. ASKED TO PLEASE CALL FOR CONVERSION BOTTLE TO BOLUS.
[2019-09-09 16:51] VITALS: BP 144/64
--- NOTE | 2019-09-09 19:30 | NUR ---
RECEIVED REPORT FROM DAY SHIFT NURSE, NORBERT POTTER. PT IS RESTING IN BED COMFORTABLY WITH EYES CLOSED, BUT AROUSABLE WHEN SPOKEN TO. BREATHING IS EVEN AND UNLABORED ON RA. HEAD OF BED ELEVATED. IV TO RFA DRY, INTACT, AND PATENT. NO ERYTHEMA NOTED. GTUBE SITE CDI. BED IN LOWEST POSITION. CALL LIGHT WITHIN REACH. WILL CONTINUE TO MONITOR.
--- NOTE | 2019-09-09 19:49 | NUR ---
ONGOING BOWEL PREP. WATERY DARK STOOL. PT SPIT UP APPROX 75 CC AFTER MOVI PREP ADMIN VIA GT. HOB ELEVATED. ENDORSED LAST BOLUS OF GT FEED 240 CC TO NOC SHIFT. ADMIN SLOWLY ALONG WITH 2ND DOSE OF MOVI PREP. D5NS INFUSING 20 CC HOUR. CONSENT SIGNED BY COLUMBA FOR COLONOSCOPY TOMORROW. EGD COMPLETED THIS AM. FAMILY STAYS WITH PT. COLUMBA IS PTS DTR. SHE WOULD LIKE TO SPEAK TODR. PINEDA BEFORE COLONOSCOPY TOMORROW.
[2019-09-09 20:17] VITALS: BP 149/62
--- NOTE | 2019-09-09 22:10 | NUR ---
ROUTINE MEDICATIONS WERE GIVEN AND TOLERATED WELL. RESIDUAL 200 CC. REPLACED. PT HAD 2 LOOSE, BLACK BM FROM BOWEL PREP FOR PROCEDURE TMRW. CHANGED AND CLEAN. GRANDDAUGHTER AT BEDSIDE. BREATHING IS EVEN AND UNLABORED ON RA. NO SIGNS OF RESP. DISTRESS. BED IN LOWEST POSITION. CALL LIGHT WITHIN REACH. WILL CONTINUE TO MONITOR.
--- NOTE | 2019-09-10 01:24 | NUR ---
PT HAD LOOSE BM FROM BOWEL PREP. CHANGED AND REPOSITIONED. ABD SLIGHTLY DISTENDED. BS ACTIVE. GRANDDAUGHTER AT BEDSIDE. BREATHING IS EVEN AND UNLABORED ON RA. NO SIGNS OF RESP DISTRESS. BED IN LOWEST POSITION. CALL LIGHT WITHIN REACH. WILL CONTINUE TO MONITOR.
--- NOTE | 2019-09-10 03:53 | NUR ---
PT STILL HAVING LOOSE, BROWN STOOLS FROM BOWEL PREP. CHANGED AND REPOSITIONED. BREATHING IS EVEN AND UNLABORED ON RA. NO SIGNS OF RESP DISTRESS. GRANDDAUGHTER AT BEDSIDE. CALL LIGHT WITHIN REACH. WILL CONTINUE TO MONITOR.
--- NOTE | 2019-09-10 04:35 | NUR ---
STATION MASTER REPORTED BP 171/77. WILL ADMIN HYDRALAZINE 0.5MG PER JAN ORDER. WILL RECHECK BP.
--- NOTE | 2019-09-10 05:17 | NUR ---
PT SLEPT IN INTERVALS THROUGHOUT THE SHIFT AND COMPLIED WITH NURSING CARE WITHOUT ANY ACUTE EVENTS OCCURING OVER NIGHT. GRANDDAUGHTER AT BEDSIDE. COMFORT AND SAFETY MEASURES MAINTAINED. ALL NEEDS ASSESSED AND ATTENDED TO. CALL LIGHT WITHIN REACH. WILL CONTINUE TO MONITOR AND ENDORSE CARE TO DAY SHIFT NURSE.
[2019-09-10 05:24] VITALS: BP 171/77
[2019-09-10 06:15] VITALS: BP 121/55
[2019-09-10 06:28] LABS: BASOPHIL % 0.5 % (0-2); PLATELET COUNT 336 x10^3mcL (130-400)
[2019-09-10 06:40] LABS: CALCIUM 9.7 mg/dL (8.5-10.1); CARBON DIOXIDE 26.4 mmol/L (21-32); CHLORIDE SERUM 114 mmol/L (98-107); CREATININE SERUM 0.9 mg/dL (0.6-1.0); GLUCOSE SERUM 196 mg/dL (74-106); MAGNESIUM 2.1 mg/dL (1.8-2.4); POTASSIUM SERUM 3.9 mmol/L (3.5-5.1); SODIUM SERUM 150 mmol/L (136-145)
[2019-09-10 06:52] LABS: RED CELL DISTRIBUTION WIDTH 14.8 % (11.5-14.5)
--- NOTE | 2019-09-10 07:25 | NUR ---
RECEIVED REPORT FROM BEAUTICIAN APPRENTICE NURSE PT LYING IN BED ASLEEP IN NO APARENT DISTRESS. IV ON RFA PATENT AND INTACT WITH FAMILY AT BEDSIDE. NO S/S OF DISTRESS NOTED. ALL NEEDS ATTENDED TO AT THIS TIME. BED IN LOW POSITION. ALL SAFETY PRECAUTIONS IN PLACE. WILL CONTINUE TO MONITOR.
--- NOTE | 2019-09-10 07:30 | NUR ---
ENDORSED CARE TO DAY SHIFT NURSEBIMAL RN.
--- NOTE | 2019-09-10 08:36 | NUR ---
PT DOWN TO COLONOSCOPY
--- NOTE | 2019-09-10 11:05 | NUR ---
PATIENT BACK FROM COLONOSCOPY VIA GURNEY WITH G.I. TECH LYING IN BED IN NO APARENT DISTRESS V/S : 196/61, P7% RA, RR 17 HR 98 T:97.7. ALL NEEDS ATTENDED TO . ADMINISTERED 0900 MEDS VIA G TUBE LATE DUE TO HER BEING OFF THE FLOOR 6ML RESIDUAL , PT TOLERATED WELL NO ADVERSE REACTIONS NOTED WILL CONTINUE TO MONITOR.
[2019-09-10 11:40] LABS: rbc morphology (normal/abnorm) ABNORMAL (NORMAL)
[2019-09-10 11:59] VITALS: BP 166/70
--- NOTE | 2019-09-10 12:00 | NUR ---
PATIENT HAD TEMP OF 100. PROVIDED COOLING MEASURES. WILL REASSESS. NO S/S OF DISTRESS. ALL NEEDS ADDRESSESSED AT TJIS TIME. SAFETY PRECAUTIONS IN PLACE. WILL CONTINUE TO MONITOR.
--- NOTE | 2019-09-10 13:00 | NUR ---
PATIENT LYING IN BED SLEEPING . FAMILY AT BEDSIDE NO S/S OF DISTRESS NOTED. BED IN LOW POSITION ALL NEEDS MET AT THIS TIME. SAFETY PRECAUTIONS IN PLACE. WILL CONTINUE TO MONITOR.
--- NOTE | 2019-09-10 15:00 | NUR ---
STARTED GLUCERNA FEEDING AT [address] ORDERS. WILL ADVANCE 10 ML TIL GOAL OF 40ML. PT TOLERATING WELL NO LEAKING INFUSING WELL. ALL NEEDS ATTENDED TO FAMILY AT BEDSIDE. WILL CONTINUE TO MONITOR.
--- NOTE | 2019-09-10 16:46 | NUR ---
PT LYING IN BED ASLEEP BLOOD GLUCOSE OF 110 NO INSULIN NEEDED PER SLIDING SCALE. NO S/S OF DISTRESS AT THIS TIME. ALL NEEDS ATTENDED TO. GTUBE INFUSING AT 10 ML. BED IN LOW POSITION FAMILY AT BEDSIDE. ALL SAFETY PRECAUTIONS IN PLACE. WILL CONTINUE TO MONITOR.
[2019-09-10 17:41] VITALS: BP 136/69
--- NOTE | 2019-09-10 18:30 | NUR ---
PATIENT LYING IN BED IN NO APARENT DISTRESS. IV RFA PATENT AND INTACT. G TUBE INFUSING 10ML. NO S/S OF DISTRESS. ALL SAFETY PRECAUTIONS IN PLACE. FAMILY AT BEDSIDE. WILL ENDORSE CARE TO MOLD CLAMPER NURSE.
--- NOTE | 2019-09-10 19:53 | NUR ---
PT IS SLEEPING BUT EASILY AROUSABLE,PT NON VERBAL,REG RESP NO SOB V/S STABLE, IV INFUSING WELL WITH THE SITE PATENT AND INTACT,PT HAS A GT TO CONTINOUS FEEDING WITH GLUCERNIA AT 20 CCC/HR AND PATIENT TOLERATING IT WELL NO RESIDUAL AT THIS TIME HOB,PT ON AIR LOW MATTRESS,PT WITH GENERALISED WEAKNESS AND WITH CONTRACTION TO THE LT SIDE,PT ON TELE MONITOR AND IN NSR NO ECTOPY OR ANY INDICATION OF CHEST PAIN AT THIS TIME,KEPT CLEAN AND DRY TO TOUCH,FAMILY AT TH BEDSIDE AND WILL CONTINUE TO MONITOR.
[2019-09-10 22:13] VITALS: BP 164/74
--- NOTE | 2019-09-11 02:50 | NUR ---
PT REPOSITION AND MADE COMFORTABLE IN BED AND WILL CONTINUE TO MONITOR.
[2019-09-11 05:47] VITALS: BP 166/69
--- NOTE | 2019-09-11 06:16 | NUR ---
PT HAD A RESTING NIGHT NO CHANGE AT THIS TIME,WILL CONTINUE TO MONITOR.
[2019-09-11 06:33] LABS: BASOPHIL % 0.5 % (0-2); PLATELET COUNT 281 x10^3mcL (130-400)
[2019-09-11 06:44] LABS: RED CELL DISTRIBUTION WIDTH 17.1 % (11.5-14.5)
[2019-09-11 07:16] LABS: CALCIUM 10.3 mg/dL (8.5-10.1); CARBON DIOXIDE 27.8 mmol/L (21-32); CHLORIDE SERUM 113 mmol/L (98-107); CREATININE SERUM 0.9 mg/dL (0.6-1.0); GLUCOSE SERUM 171 mg/dL (74-106); PHOSPHOROUS 3.4 mg/dL (2.5-4.9); POTASSIUM SERUM 3.2 mmol/L (3.5-5.1); SODIUM SERUM 150 mmol/L (136-145)
--- NOTE | 2019-09-11 07:20 | NUR ---
RECEIVED PT. IN BED AWAKE. PT. IS NONVERBAL AND UNABLE TO MAKE NEEDS KNOWN. NO SOB, NO N/V NOTED. NO INDICATION OF PAIN NOTED AT THE PRESENT TIME. PT. IS ON AIR MATTRESS. IV SITE NOTED TO [place]. PT. IS ON GT FEEDING RUNNING AT 40 CC/HR. DAUGHTER AT BEDSIDE. BED IN LOW POS., CALL LIGHT WITHIN REACH. SIDE RAILS UP X3.
--- NOTE | 2019-09-11 07:43 | NUR ---
SCREEN FOR LOW AARON SCALE AT RISK CONTINUE PRESSURE ULCER PREVENTION INTERVENTIONS: -TURN AND REPOSITION PATIENT Q 2H OFFLOAD LEFT AND RIGHT HIPS -ASSESS AND MONITOR SKIN CONDITION DURING POSITION CHANGE -OFFLOAD BILATERAL HEELS BY PLACING PILLOWS UNDER CALVES AT ALL TIMES, UNLESS OTHERWISE CONTRAINDICATED -PRESSURE REDISTRIBUTION SURFACE THERAPY WITH PILLOWS/WEDGE POSITIONER -KEEP SKIN CLEAN AND DRY AT ALL TIMES. -APPLY OPTIFOAM TO SACRALCOCCYX AREA DAILY FOR PREVENTION
[2019-09-11 08:51] VITALS: BP 138/55
[2019-09-11] MEDS ORDERED: FERL GT (10:20)
[2019-09-11] MEDS ORDERED: LAC30L GT (10:21)
[2019-09-11] MEDS ORDERED: LANSOPRAZOLE (10:24)
[2019-09-11 12:32] VITALS: BP 151/71
--- NOTE | 2019-09-11 14:30 | NUR ---
D/C HOME INSTRUCTIONS GIVEN TO PT.'S DAUGHTER (COLUMBA CASTELAN) WHO VERBALIZED UNDERSTANDING OF INSTRUCTIONS. IV H/L TO R FA REMOVED. TELE. MONITOR #15 REMOVED AND RETURNED TO TELE. MONITOR STATION. GT FLUSHED WITH 100 CC OF WATER BEFORE CLAMPING.
--- NOTE | 2019-09-11 15:38 | NUR ---
PT. IS BEING DISCHARGED IN STABLE CONDITION VIA [facility]. ALL BELONGINGS SENT HOME WITH PT. UPON DISCHARGE. PT. IS ACCOMPANIED BY HER DAUGHTER COLUMBA AT THE TIME OF DISCHARGE.
== END 2019-09-11 15:40 | disposition home health service (06) | DRG 241 ==
LOC: ED 20:46 → DU 09-08 02:00 → ED 09-08 02:00 → EDBEDREQSVC 09-08 02:00 → MU 09-08 02:00 → EDBEDREQ 09-08 02:00 → DU 09-08 03:18 → MU 09-08 03:37 → DU 09-08 03:39
PROVIDERS: Emergency Medicine; Internal Medicine Gastroenterology; ADMIT Internal Medicine
PROC: 0DB78ZX Excision of Stomach, Pylorus, Via Natural or Artificial Opening Endoscopic, Diagnostic (ICD-10-PCS; principal; 2019-09-09 08:00)
PROC: 0DBH8ZZ Excision of Cecum, Via Natural or Artificial Opening Endoscopic (ICD-10-PCS; 2019-09-10 09:00)
PROC: 0D20XUZ Change Feeding Device in Upper Intestinal Tract, External Approach (ICD-10-PCS; 2019-09-11)
DX: K26.4 Chronic or unspecified duodenal ulcer with hemorrhage (principal); N17.0 Acute kidney failure with tubular necrosis; E87.2 Acidosis; E11.65 Type 2 diabetes mellitus with hyperglycemia; G20 Parkinson's disease; D12.0 Benign neoplasm of cecum; E78.00 Pure hypercholesterolemia, unspecified; F32.9 Major depressive disorder, single episode, unspecified; K86.9 Disease of pancreas, unspecified; I16.0 Hypertensive urgency; K57.30 Diverticulosis of large intestine without perforation or abscess without bleeding; G40.909 Epilepsy, unspecified, not intractable, without status epilepticus; D50.9 Iron deficiency anemia, unspecified; I10 Essential (primary) hypertension; G30.9 Alzheimer's disease, unspecified; F02.80 Dementia in other diseases classified elsewhere, unspecified severity, without behavioral disturbance, psychotic disturbance, mood disturbance, and anxiety; K59.09 Other constipation; Z68.22 Body mass index [BMI] 22.0-22.9, adult; Z79.84 Long term (current) use of oral hypoglycemic drugs; Z86.73 Personal history of transient ischemic attack (TIA), and cerebral infarction without residual deficits; Z83.3 Family history of diabetes mellitus; Z90.710 Acquired absence of both cervix and uterus; Z79.82 Long term (current) use of aspirin; Z23 Encounter for immunization
CPT/HCPCS: 43235; 45378; 82962; 90658; C9113; G0378; J0360; J1200; J1610; J1940; J2250; J2310; J3010; J3490; J7030; J7042; Q0092; Q9967

== ENCOUNTER 2019-10-08 02:25 | Inpatient (IN) | payer OTHER, MEDICARE ==
[~2019-10-08] VITALS: Ht 157.5 cm; Wt 57.2 kg
[2019-10-08] VITALS (7 sets, daily range): BP systolic 123–188; BP diastolic 62–87; Ht 157.5 cm; Wt 57.2 kg
[~2019-10-08 02:25] MED LIST changes: +FERL GT; +LAC30L GT; +LANSOPRAZOLE
--- NOTE | 2019-10-08 02:40 | NUR ---
PT STRAIGHT CATHD AT THIS TIME WITH ASSISTANCE BY DAIN POTTER AND GUILLE POTTER. STERILE TECHNIQUE MAINTAINED. PT TOLERATED WELL. STRAIGHT CATH OUTPUT APPROX 15 CC OF YELLOW URINE. URINE SENT TO LAB
--- NOTE | 2019-10-08 02:49 | NUR ---
XRAY AT BEDSIDE.
--- NOTE | 2019-10-08 02:51 | NUR ---
FAMILY AT BEDSIDE.
--- NOTE | 2019-10-08 03:13 | NUR ---
LAB AT BEDSIDE.
--- NOTE | 2019-10-08 03:38 | NUR ---
LAB AT BEDSIDE FOR 2ND BLOOD CULTURE DRAW
[2019-10-08] MEDS ORDERED: METOPROLOL SUCC50 M2 PO (03:47)
[2019-10-08 03:54] LABS: BASOPHIL % 0.3 % (0-2); PLATELET COUNT 234 x10^3mcL (130-400)
[2019-10-08 04:01] LABS: RED CELL DISTRIBUTION WIDTH 16.1 % (11.5-14.5)
--- NOTE | 2019-10-08 04:03 | NUR ---
IV FLUIDS RUNNING AT ORDERED RATE. IV FLOWS WITH NO COMPLICATIONS. FAMILY AT BEDSIDE. CM AND [address] LIGHTS TURNED OFF AND SOCKS PROVIDED FOR PT COMFORT.
[2019-10-08 04:06] LABS: UA SPECIFIC GRAVITY <=1.005 (1.005-1.035); microscopic required? YES; urine erythrocyte NEGATIVE (NEGATIVE)
[2019-10-08 04:08] LABS: CALCIUM 10.4 mg/dL (8.5-10.1); CARBON DIOXIDE 26.5 mmol/L (21-32); CHLORIDE SERUM 99 mmol/L (98-107); GLUCOSE SERUM 256 mg/dL (74-106); POTASSIUM SERUM 4.3 mmol/L (3.5-5.1); SODIUM SERUM 137 mmol/L (136-145)
[2019-10-08 04:13] LABS: ALBUMIN 3.4 g/dL (3.4-5.0); ALKALINE PHOSPHATASE 265 U/L (46-116); ALT/SGPT 251 U/L (14-59); AST/SGOT 237 U/L (15-37); TOTAL PROTEIN, SERUM 7.8 g/dL (6.4-8.2)
--- NOTE | 2019-10-08 05:22 | NUR ---
ATTEMPTED TO CALL REPORT TO CLEMENTE POTTER. INFORMED THAT CLEMENTE WOULD CALL BACK FOR REPORT.
--- NOTE | 2019-10-08 05:32 | NUR ---
MOVED PT UP IN BED WITH ASSISTANCE BY ANU POTTER. PT ASSISTED INTO POSITION OF COMFORT. CM AND [address] WILL CONTINUE TO MONITOR.
--- NOTE | 2019-10-08 05:45 | NUR ---
REPORT GIVEN TO CLEMENTE POTTER
--- NOTE | 2019-10-08 05:58 | NUR ---
PT TRANSFERED TO TELE VIA JOSSELYN ACCOMPANIED BY MYSELF AND FAMILY MEMBER. PT PLACED ON TRANSPORT CM. PT REMAINS GSC OF 10, BREATHING EVEN AND UNLABORED. IV INTACT AND FLOWS WITH NO COMPLICATIONS. PT REMAINS ON 2L O2 VIA BHAVANA. CLEMENTE POTTER AT BEDSIDE TO ASSUME CARE OF PT. IV FLUIDS ENDORSED TO CLEMENTE POTTER.
--- NOTE | 2019-10-08 06:16 | NUR ---
RECEIVED PT FROM ED VIA RLAFAYETTE ACCOMPANY BY NURSE. PT AWAKE NONVERBAL. FAMILY MEMBER AT BEDSIDE. IV RFA PATENT, INFUSING WELL. TURN AND REPOSITION PT AT THIS TIME. TELE [address], HR 104 PER MONITOR. PT BREATHING EVEN AND UNLABORED ON NC 2L/MIN NO SOB NOTED. NO SIGNS OF ACUTE DISTRESS NOTED. CALL BUTTON WITHIN REACH. SAFETY PRECAUTIONS IN PLACE. WILL CONTINUE TO MONITOR AND ENDORSE CARE TO DAY SHIFT RN.
--- NOTE | 2019-10-08 06:38 | NUR ---
DR AMAYA MADE AWARE PT BP 188/87, AWAITING NEW ORDERS.
--- NOTE | 2019-10-08 07:29 | NUR ---
PT AWAKE IN BED. NC 2L/MIN NO SOB NOTED. IV PATENT, INFUSING WELL. NO SIGNS OF DISTRESS NOTED. SAFETY PRECAUTIONS IN PLACE. ENDORSED CARE TO DAY SHIFT RN, ALL QUESTIONS ADDRESSED.
--- NOTE | 2019-10-08 08:00 | NUR ---
SHIFT ASSESSMENT DONE. PATIENT DEMENTIA AND HX OF CVA W/ LT SIDE WEAKNESS. PRODUCTIVE COUGHING WITH SMALL AMOUNT OF WHITE SPUTUM. O2 SAT 94% ON RA. O2 D/C'D BY RT. TELE#32; SR W/ DEPRESSED ST; HR= 97. DENIED PAIN. NGT TO LUQ ABD. URINE INCONT. IVF OF NS 80CC/HR. IV PATENT. AIR MATTRESS ON. SON AT BED SIDE. CALL LIGHT IN REACH.
--- NOTE | 2019-10-08 09:00 | NUR ---
GT FEEDING PER ORDER. STARTED WITH GLUCERNA 1.2 40CC/HR WITH WATER FLUSH 50CC/Q2H. RESIDUAL CHECK =0.
--- NOTE | 2019-10-08 14:30 | NUR ---
RECHECKED RESIDUAL 2CC, REPLACED.
--- NOTE | 2019-10-08 16:03 | NUR ---
PT WAS SEEN FOR DYSPHAGIA. PT HAD POCKETING FOR PUREE DIET AND MILD COUGH INDICATION HIGH RISK OF ASPIRATION FOR ANY PO INTAKE. CONTINUE WITH ALTERNATE MODE OF FEEDING. RECOMMENDATION CONTINUE WITH ALTERNATE MODE OF FEEDING NO PO INTAKE.
--- NOTE | 2019-10-08 19:00 | NUR ---
TOLERATED GT FEEDING. RESIDUAL 2CC, REPLACED. IVF OF NS 80CC/HR. URINE INCONT. VOID ENOUGH AMOUNT URINE. COUGHING FREQUENTLY. O2 SAT 96% ON 2L VIA N/C. RT PROTOCOL. LT GROIN AREA ERYTHEMA. PHOTO TAKEN. ENDORSED CARE TO NOC NURSE.
--- NOTE | 2019-10-08 20:14 | NUR ---
PT RECIEVED AWAKE ALERT BUT NON RESPONSIVE VERBALLY AT THIS TIME,HOB,REG RESP NO SOB ON 2LN/C SAT 96%,ABDO IS SOFT WITH ACTIVE BOWEL SOUNDS,PT HAS A GT FEEDING AND TOLERATING IT WELL NO RESIDUAL DRAW,BED IN THE LOW POSITION AND LOCKED,BED IN THE LOW POSITION AND LOCKED,KEPT CLEAN AN DRY TO TOUCH,WILL CONTINUE TO MONITOR.
--- NOTE | 2019-10-08 21:40 | NUR ---
CLEAN AND REPOSITION AND MADD COMFORTABLE IN BED,PT WITH REDNESS TO THE ABDOMINAL FOLDS CLEAN AND CREAM APPLIED,WILL CONTINUE TO MONITOR.
[2019-10-09 05:36] VITALS: BP 160/65
--- NOTE | 2019-10-09 06:26 | NUR ---
PT REPOSITIONN AND WAS MADE COMFORTABLE IN BED,GT SITE CLEAN AND NEW DRESSSING PUT ON,PT TOLERATING THE FEDDING WELL NO RESIDUAL,DAUGTHER AT THE BEDSIDE AND WILL CONTINUE TO MONITOR.
[2019-10-09 06:28] LABS: BASOPHIL % 0.4 % (0-2); PLATELET COUNT 203 x10^3mcL (130-400)
[2019-10-09 06:40] LABS: RED CELL DISTRIBUTION WIDTH 16.2 % (11.5-14.5)
[2019-10-09 06:48] LABS: CARBON DIOXIDE 26.7 mmol/L (21-32); CHLORIDE SERUM 107 mmol/L (98-107); CREATININE SERUM 0.8 mg/dL (0.6-1.0); GLUCOSE SERUM 201 mg/dL (74-106); MAGNESIUM 1.9 mg/dL (1.8-2.4); PHOSPHOROUS 2.3 mg/dL (2.5-4.9); SODIUM SERUM 143 mmol/L (136-145)
--- NOTE | 2019-10-09 08:56 | NUR ---
SCREEN FOR LOW AARON SCALE AT RISK CONTINUE PRESSURE ULCER PREVENTION INTERVENTIONS: -TURN AND REPOSITION PATIENT Q 2H OFFLOAD LEFT AND RIGHT HIPS -ASSESS AND MONITOR SKIN CONDITION DURING POSITION CHANGE -OFFLOAD BILATERAL HEELS BY PLACING PILLOWS UNDER CALVES AT ALL TIMES, UNLESS OTHERWISE CONTRAINDICATED -PRESSURE REDISTRIBUTION SURFACE THERAPY WITH PILLOWS/WEDGE POSITIONER -KEEP SKIN CLEAN AND DRY AT ALL TIMES.
[2019-10-09 09:09] VITALS: BP 139/61
--- NOTE | 2019-10-09 09:57 | NUR ---
PT RESTING AT THIS TIME,WILL CONTINUE TO MONITOR.
--- NOTE | 2019-10-09 09:57 | NUR ---
PT REPOSITIONNAND WAS MADE COMFORTABLE IN BED AND WILL CONTINUE TO MONITOR.
--- NOTE | 2019-10-09 11:15 | NUR ---
RECEIVED PATIENT FROM DAMI VALLADARES RN. PATIENT SLEEPING, AROUSABLE. DEMENTIA. CALM. BREATHING EVENLY. O2 SAT 95% ON 1L VIA N/C. GT FEEDING AT 40CC/HR. RESIDUAL CHECKING 1CC, REPLACED. ADVANCED GLUCERNA 1.2 FEDDING RATE TO 50CC/HR AND WATER 50CC/Q2H. URINE INCONT. ON AIR MATTRESS. NO S/S OF PAIN. CONTINEU MONITOR.
[2019-10-09 13:11] VITALS: BP 107/50
--- NOTE | 2019-10-09 13:39 | NUR ---
Initial Nutrition Assessment: 223T/A CAYANAN, LORIE P IA HR Dx: sepsis, PNA, UTI PMHx: Dementia, HTN, functional Quadriplegia PSHx: None, Peg tube Labs: BG 201H, P 2.3L, AST 237H, ALT 251H, P 2.3L Meds: Apresoline, Colace, D 50%, ferrous sulfate, Humulin, Lopressor, Zofran, zosyn Diet: TF Glucena 1.2 @ 40 ml/hr, goal 50 ml/hr, FWF 50 ml Q2H PO intake since admission: NPO Ht: 157.48 cm (62") Wt: 57 kg (125#) BMI: 23 kg/m2 Bed scale: 57 kg IBW: 110# (50 kg) %IBW: 113 UBW: unable to access Age: 89/F Food Allergies: NKFA Skin: intact Shaka: 13 Edema: none GI: Last BM: 10/09 Per H&P, Pt is a 89 YOF with PMH of Dementia, HTN, functional quadriplegia was brought in by paramedics with c/o AMS, fever, SOB and productive cough. RD Note (10/09): Patient was sleeping. Per RN January and Monika, pt does not have any N/V/D at this time. Patient has not had a BM yet and is on stool softener. Per DIP UNIT OPERATOR note (10/08), pt has dysphagia and to continue alternate mode of feeding. Pt is receiving Glucerna 1.2 @ 50 ml/hr though PEG tube. Per RN, pt is tolerating it well. Problem with: N/V/D/C: constipation Problems with: Chewing: Swallowing: yes Current appetite: unable to access Recent wt change: unable to access %wt change: n/a Vitamin/Supplement use: unable to access Special diet at home: unable to access Physical activity: unable to access Nutrition education given: not possible at this time Food-drug interactions: none Education given: n/a Estimated Nutritional Needs Based on current body weight (57 kg) Energy: 7703-9383 kcal/day (30-35 kcal/kg for sepsis, PNA) Protein: 68-80 g/day (1.2-1.4 g/kg for sepsis) Fluid: 4680-8981 mL/day (1 mL/kcal) Nutrition Diagnosis: 1. Increased nutrient needs related to sepsis as evidenced by estimated calorie and protein needs. Intervention 1. Recommend continuing Glucerna 1.2 @ 50 ml/hr, FWF 50 ml Q2H. This will provide 1440 kcal and 72g protein. This will meet >80% calorie and 100% protein needs of the patient. Paged Dr. Barnes, waiting for call back. Monitor/Evaluate Goal: PO intake at least 75% of estimated needs Monitor: PO intake, Labs, GI function F/U in 3-5 days as moderate risk 10/12-
[2019-10-09 17:08] VITALS: BP 110/61
--- NOTE | 2019-10-09 20:00 | NUR ---
PT RECIEVED SLEEPING BUT EASILY AROUSABLE BUT VERBALLY UNRESPONSIVE WITH FAMILY AT BEDSDIE,HOB,REG RESP NO SOB ABDO SOFT WITH ACTIVE BOWEL SOUNDS WITH GT FEDDING TOLERATING WELL MO RESIDUAL AT THIS TIME,HOB,IV INFUSING WELL WITH LEXII SITE PATENT AND INTACT,BED IN THE LOW POSITION AND LOCKEWD,KEPT CLEAN AND DRY TO TOUCH AND WILL CONTINUE TO MONITOR.
[2019-10-09 20:57] VITALS: BP 136/53
--- NOTE | 2019-10-09 23:02 | NUR ---
PT CLEAN RESPOSIITON,MADE COMFORTABLE IN BED,WILL CONTINUE TO MONITOR.
--- NOTE | 2019-10-10 02:41 | NUR ---
PT SLEEPING AT THIS TIME AND WILL CONTINUE TO MONITOR.
[2019-10-10 05:00] VITALS: BP 141/68
--- NOTE | 2019-10-10 06:29 | NUR ---
PT CLEAN AND REPOSITION,DRESSING CHANGE TO THE GT SITE,PT HAD A RESTING NIGHT NO CHANGE AT THIS TIME,WILL CONTINUE TO MONITOR.
[2019-10-10 07:02] LABS: BASOPHIL % 0.3 % (0-2); PLATELET COUNT 247 x10^3mcL (130-400)
--- NOTE | 2019-10-10 07:10 | NUR ---
RECEIVED PT FROM RN HEMO DIALYSIS RN. AWAKE/ALERT. NONVERBAL. TELE#32. NO SIGNS OR INDICATIONS OF PAIN NOTED. RESPIRATIONS EQUAL AND UNLABORED ON RA. NO ACUTE RESP DISTRESS NOTED. G-TUBE FEEDING RUNNING AT 50 ML/HR WITH FWF 50 ML Q2HR. NO RESIDUAL VOLUME NOTED. ASPIRATION PRECAUTIONS IN PLACE. PT FOUND POSITIONED ON RIGHT SIDE WITH HEELS ELEVATED. SCDS IN PLACE AT BEDSIDE. AIR MATTRESS IN PLACE. IV TO RW PATENT AND INFUSING. NO REDNESS OR SWELLING NOTED. WILL CONTINUE TO MONITOR. CALL LIGHT IN REACH. BED IN LOWEST POSITION.
[2019-10-10 07:15] LABS: CALCIUM 9.7 mg/dL (8.5-10.1); CARBON DIOXIDE 25.8 mmol/L (21-32); CHLORIDE SERUM 106 mmol/L (98-107); CREATININE SERUM 0.9 mg/dL (0.6-1.0); GLUCOSE SERUM 205 mg/dL (74-106); MAGNESIUM 1.9 mg/dL (1.8-2.4); PHOSPHOROUS 2.4 mg/dL (2.5-4.9); POTASSIUM SERUM 3.7 mmol/L (3.5-5.1); SODIUM SERUM 141 mmol/L (136-145)
[2019-10-10 07:19] LABS: RED CELL DISTRIBUTION WIDTH 15.9 % (11.5-14.5)
[2019-10-10 09:29] VITALS: BP 173/79
--- NOTE | 2019-10-10 10:42 | NUR ---
PT SITTING UP IN BED. NO ACUTE RESP DISTRESS NOTED ON RA. PT CHANGED AND REPOSITIONED ON LEFT SIDE WITH HEELS ELEVATED. SCDS IN PLACE AT BEDSIDE. MEDICATIONS GIVEN VIA G-TUBE. NO RESIDUAL VOLUME NOTED. ASPIRATION PRECAUTIONS IN PLACE. IV TO RW PATENT AND INFUSING. NO REDNESS OR SWELLING NOTED. SON AT BEDSIDE. EXPLAINED TO SON PLAN TO KEEP PT ANOTHER ONE TO TWO DAYS. WILL CONTINUE TO MONITOR. CALL LIGHT IN REACH. BED IN LOWEST POSITION.
--- NOTE | 2019-10-10 12:45 | NUR ---
PT SITTING UP IN BED. SON AT BEDSIDE. G-TUBE SITE CDI. NO REDNESS OR DRAINAGE NOTED. NO RESIDUAL VOLUME NOTED. ASPIRATION PRECAUTIONS IN PLACE. IV ANTIBIOTICS INFUSING ORDERED. NO REDNESS OR SWELLING NOTED. BLOOD SUGAR CHECKED WAS 210. GIVEN 6 UNITS OF REGULAR INSULIN PER SLIDING SCALE. WILL CONTINUE TO MONITOR. CALL LIGHT IN REACH. BED IN LOWEST POSITION.
[2019-10-10 13:21] VITALS: BP 142/62
[2019-10-10 16:27] VITALS: BP 142/76
--- NOTE | 2019-10-10 16:33 | NUR ---
FAMILY AT BEDSIDE. FAMILY ASKING IF ALBUTEROL CAN BE GIVEN. EXPLAINED TO FAMILY ALBUTEROL WAS GIVEN AROUND 1300 AND IS SCHEDULED Q4HR. FAMILY ASKING TO HAVE ALBUTEROL CHANGED TO XOPENEX Q6HR AND PRN. SPOKE WITH DR. BARAJAS REGARDING ALBUTEROL ORDER. PER DR. BARAJAS OKAY TO HAVE RESPIRATORY CHANGE ORDER TO XOPENEX. SPOKE WITH REPIRATORY THERAPIST CISREL WILL UPDATE ORDER. FMAILY MADE AWARE. WILL CONTINUE TO MONITOR. CALL LIGHT IN REACH. BED IN LOWEST POSITION.
--- NOTE | 2019-10-10 19:38 | NUR ---
PT RECIEVED AWAKE ALERT WITH FAMILY AT THE BEDSIDE,PT NON VERBALLY RESPONSIVE,HOB,REG RESP NO SOB,ABDO IS SOFT WITH ACTIVE BOWEL SOUN,PT GT FEEDING AND TOLERATING IT WEL NO RESIDUAL DRAW,PT ON LOW AIR MATTRESS,PT HAS REDNESS TO THE ABDO FOLDS,HL SITE PATENT AND INTACT,CALL LIGHT EASY REACHED AND WILL CONTINUE TO MONITOR.
[2019-10-10 21:14] VITALS: BP 149/71
--- NOTE | 2019-10-11 03:59 | NUR ---
PT REPOSITION CLEAN AND WAS MADE COMFORTABLE IN BED,WILL CONTINUE TO MONITOR.
[2019-10-11 05:41] VITALS: BP 124/65
[2019-10-11 05:57] LABS: BASOPHIL % 0.4 % (0-2); PLATELET COUNT 235 x10^3mcL (130-400)
[2019-10-11 05:59] LABS: RED CELL DISTRIBUTION WIDTH 16.4 % (11.5-14.5)
--- NOTE | 2019-10-11 06:30 | NUR ---
PT REPOSITION AND WAS MADE COMFORTABLE IN BED AND WILL CONTINUE TO MONITOR.
[2019-10-11 06:32] LABS: CALCIUM 9.6 mg/dL (8.5-10.1); CARBON DIOXIDE 29.6 mmol/L (21-32); CHLORIDE SERUM 105 mmol/L (98-107); CREATININE SERUM 0.9 mg/dL (0.6-1.0); GLUCOSE SERUM 191 mg/dL (74-106); POTASSIUM SERUM 3.9 mmol/L (3.5-5.1); SODIUM SERUM 142 mmol/L (136-145)
--- NOTE | 2019-10-11 07:20 | NUR ---
RECEIVED PATIENT FROM CHARGE NURSE NURSE . PATIENT CONFUSED WITH L FACIAL DROOP AND L SIDED WEAKNESS, TELE 32 ,NOT IN RESPIRATORY DISTRESS, O2 AT 2LPM VIA NASAL CANNULA , 98% O2 SAT, TELE 32 NSR, WEAK PEDAL PULSES, NO EDEMA, CRACKLES ON BLF, + BOWEL SOUNDS, LAST BM 10/11/19, PEG TUBE ON ABDOMEN, GENERALIZED L SIDED WEAKNESS, L HAND CONTRACTURE, LEFT GROIN ERYTHEMA NOTED, NO PAIN AT THIS TIME, IV INTACT AND PATENT AT RFA. CALL LIGHT WITHIN REACH. BED AT LOWEST POSITION.
[2019-10-11 09:54] VITALS: BP 159/71
--- NOTE | 2019-10-11 10:19 | NUR ---
SPOKE WITH MICROBILOGY LAB REGARDING RESULTS OF MICRO SENSITIVITY. MICROLAB HORSE RACING MANAGER VERBALIZED IT WILL BE REPORTED IN 10 MINUTES.
--- NOTE | 2019-10-11 12:02 | NUR ---
SEEN ASLEEP, NOT IN DISTRESS, ACCUCHECK DONE WITH CBG 196 , REG 3 U INSULIN GIVEN.
--- NOTE | 2019-10-11 12:33 | NUR ---
SPOKE WITH FAMILY REGARDING SNF TRANSFER TO PATIENT WHILE ON ANTIBIOTICS. FAMILY AGREED TO HAVE SNF. CASE MANAGEMENT AWARE OF SITUATION.
[2019-10-11 12:45] VITALS: BP 159/71
[2019-10-11 14:37] VITALS: BP 145/63
--- NOTE | 2019-10-11 14:37 | NUR ---
SEEN ASLEEP, RESPONSIVE TO TOUCH, G TUBE IN PLACE, IV PATENT AND INFUSING WELL, NO REDNESS OR INFILTRATION. PHENERGAN GIVEN VIA PEG TUBE. AZITHROMYCIN IVPB INFUSING WELL. PATIENT TURNED TO SIDE . CALL LIGHT WITHIN REACH. BED AT LOWEST POSITION.
--- NOTE | 2019-10-11 16:15 | NUR ---
SEEN ASLEEP, NOT IN DISTRESS, O2 AT 2LPM VIA NC. ACCUCHECK DONE WITH CBG 184. REG 3 U INSULIN , SQ GIVEN. CALL LIGHT WITHIN REACH. BED AT LOWEST POSITION.
[2019-10-11] MEDS ORDERED: ZITHROMAX1 GM/Packe IV (16:50)
[2019-10-11] MEDS ORDERED: LEVOFLOXACIN I100 ML IV (16:52)
[2019-10-11 16:57] VITALS: BP 152/66
[2019-10-11 17:26] VITALS: BP 152/66
--- NOTE | 2019-10-11 18:09 | NUR ---
CALLED [facility] . SPOKE WITH KEYANA AND GAVE REPORT ON PATIENT.
--- NOTE | 2019-10-11 18:10 | NUR ---
GAVE DISCHARGE INSTRUCTIONS ON FAMILY OF PATIENT. TOLD THAT FF UP APPOINTMENT IS SET UP, MEDICATIONS WILL BE TAKEN FROM PREFERRED PHARMACY, MADE SURE TO BRING BELONGINGS WITH THEM, IV SITE AND PEG TUBE IN PLACE. MADE AWARE OF PATIENT TRANSFER TO [facility] AND ADDRESSED QUESTIONS OF DISCHARGE MEDICATIONS.
--- NOTE | 2019-10-11 19:30 | NUR ---
RECEIVED PT FROM [facility] RAMÍREZ. PT SEEN LYING IN BED, HAS HER EYES OPEN, NO VERBAL RESPONSE NOTED. DOES NOT FOLLOW SIMPLE COMMANDS. NO SOB NOTED, ON 2LPM/NC. NO S/S OF CHEST PAIN/PRESSURE, ON TELE#32, SR ON THE MONITOR. NO S/S OF ABDOMINAL DISCOMFORT. W/ PEG TUBE, GASTRIC RESIDUAL CHECKED=10 ML, REPLACED. PEG TUBE SITE IS CLEAN AND DRY, NO ERYTHEMA NOTED. URINE INCONTINENT. 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 W/ LEFT SIDED WEAKNESS AND LEFT HAND CONTRACTURE. ON AIR MATTRESS. PT'S DAUGHTER AND SON AT BEDSIDE, FAMILY AWARE THAT WE'RE WAITING FOR [facility] TO [facility]RIVE. CALL LIGHT ON REACH. HOB ELEVATED AT 30 DEG. WILL CONT TO MONITOR.
--- NOTE | 2019-10-11 20:20 | NUR ---
PT WAS PICKED UP VIA [facility] BY . TRANSFER PACKET GIVEN TO THE TRANSPORTER. ALL BELONGINGS WERE GIVEN TO THE PT'S DAUGHTER. PT ON 3LPM/NC, NO S/S OF PAIN AND SOB. W/ RIGHT HAND GAUGE 22 IV, PATENT AND INTACT. W/ PEG TUBE, CLAMPED. PT DISCHARGED.
== END 2019-10-11 20:22 | DRG 720 ==
LOC: ED 02:25 → DU 05:00
PROVIDERS: Emergency Medicine; Internal Medicine; ADMIT Internal Medicine
DX: A41.9 Sepsis, unspecified organism (principal); N17.0 Acute kidney failure with tubular necrosis; J69.0 Pneumonitis due to inhalation of food and vomit; R65.21 Severe sepsis with septic shock; G93.41 Metabolic encephalopathy; R53.2 Functional quadriplegia; G20 Parkinson's disease; E11.65 Type 2 diabetes mellitus with hyperglycemia; Z93.1 Gastrostomy status; N39.0 Urinary tract infection, site not specified; E78.00 Pure hypercholesterolemia, unspecified; F32.9 Major depressive disorder, single episode, unspecified; I10 Essential (primary) hypertension; G30.9 Alzheimer's disease, unspecified; F02.80 Dementia in other diseases classified elsewhere, unspecified severity, without behavioral disturbance, psychotic disturbance, mood disturbance, and anxiety; D50.9 Iron deficiency anemia, unspecified; R74.0 Nonspecific elevation of levels of transaminase and lactic acid dehydrogenase [LDH]; Z74.01 Bed confinement status; Z79.84 Long term (current) use of oral hypoglycemic drugs; Z90.710 Acquired absence of both cervix and uterus; Z83.3 Family history of diabetes mellitus; Z79.899 Other long term (current) drug therapy
CPT/HCPCS: 82962; 87804; 92526-GN; 92610-GN; G0378; J0456; J0696; J1956; J2543; J7030; J7060; J7620; Q0092

== ENCOUNTER 2019-11-03 22:09 | Emergency (ER) | payer MEDICARE, OTHER ==
[~2019-11-03] VITALS: Ht 160 cm; Wt 63.5 kg
[~2019-11-03 22:09] MED LIST changes: +LEVOFLOXACIN I100 ML IV; +METOPROLOL SUCC50 M2 PO; +ZITHROMAX1 GM/Packe IV
[2019-11-03 22:16] VITALS: Ht 160 cm; Wt 63.5 kg
[2019-11-04 00:40] VITALS: BP 165/73
== END 2019-11-04 00:40 | disposition home or self-care (01) ==
LOC: ED 22:09
DX: Z46.59 Encounter for fitting and adjustment of other gastrointestinal appliance and device (principal); I10 Essential (primary) hypertension; E78.00 Pure hypercholesterolemia, unspecified; G30.9 Alzheimer's disease, unspecified; F02.80 Dementia in other diseases classified elsewhere, unspecified severity, without behavioral disturbance, psychotic disturbance, mood disturbance, and anxiety; Z86.73 Personal history of transient ischemic attack (TIA), and cerebral infarction without residual deficits; Z90.710 Acquired absence of both cervix and uterus
CPT/HCPCS: Q0092; Q9967